=== PATIENT | male | born 1965 | race African-American/Black ===

== ENCOUNTER 2016-07-19 16:16 | Inpatient (IN) | payer OTHER, MEDICAID ==
[~2016-07-19] VITALS: Ht 182.9 cm; Wt 79.4 kg
[2016-07-19 16:39] VITALS: BP 114/79
[2016-07-19] MEDS ORDERED: BENZTROPINE MESY1 MG PO (16:40)
[2016-07-19] MEDS ORDERED: VITAMIN D1000 UNI1 ORAL (16:40)
[2016-07-19] MEDS ORDERED: SIMVASTATIN20 MG ORAL (16:40)
[2016-07-19] MEDS ORDERED: FERROUS SULFAT325 MG ORAL (16:40)
[2016-07-19] MEDS ORDERED: ZOLPIDEM TARTRAT5 MG ORAL (16:40)
[2016-07-19] MEDS ORDERED: TOPROL XL50 MG ORAL (16:40)
[2016-07-19] MEDS ORDERED: ZYPREXA10 MG ORAL (16:40)
[2016-07-19] MEDS ORDERED: QUETIAPINE FUMA50 MG ORAL (16:40)
[2016-07-19] MEDS ORDERED: LORATADINE10 M1 PO (16:40)
[2016-07-19] MEDS ORDERED: METFORMIN HCL1000 M1 ORAL (16:40)
[2016-07-19] MEDS ORDERED: DOCUSATE SODIU100 MG ORAL (16:40)
[2016-07-19] MEDS ORDERED: ACTOS30 MG ORAL (16:40)
[2016-07-19 18:00] LABS: MEAN CORPUSCULAR HEMOGLOBIN 22.8 PG (27.0-31.0); MEAN CORPUSCULAR HGB CONC 31.4 G/DL (32.0-36.0); MEAN CORPUSCULAR VOLUME 73 FL (80-99); MEAN PLATELET VOLUME 9.8 FL (6.5-10.1); PLATELET COUNT 128 K/UL (150-450); RED BLOOD COUNT 5.59 M/UL (4.70-6.10); RED CELL DISTRIBUTION WIDTH 14.3 % (11.6-14.8)
[2016-07-19 18:02] LABS: WHITE BLOOD COUNT 0.9 K/UL (4.8-10.8)
[2016-07-19 18:09] LABS: APPEARANCE,URINE SLIGHTLY CLOUDY; KETONES,URINE NEGATIVE (NEGATIVE); LEUKOCYTE ESTERASE ,URINE 1+ (NEGATIVE); NITRITE,URINE POSITIVE (NEGATIVE); PH,URINE 6 (4.5-8.0); PROTEIN,URINE NEGATIVE (NEGATIVE); UROBILINOGEN,URINE NORMAL MG/DL (0.0-1.0)
[2016-07-19 18:16] LABS: TROPONIN I < 0.30 ng/mL (<=0.30)
[2016-07-19 18:17] LABS: BACTERIA,URINE MANY /HPF; RBC,URINE 0-2 /HPF (0 - 0); SQUAMOUS EPITHELIAL CELL,UR OCCASIONAL /LPF (NONE/OCC)
[2016-07-19 18:20] LABS: ALANINE AMINOTRANSFERASE 103 U/L (3-41); ALBUMIN/GLOBULIN RATIO 1.4 (1.0-2.7); ANION GAP 13 (5-15); ASPARTATE AMINO TRANSFERASE 67 U/L (5-40); CALCIUM 10.9 mg/dL (8.6-10.2); CARBON DIOXIDE 31 mEQ/L (20-30); CHLORIDE 96 mEQ/L (98-107); CREATININE 0.5 mg/dL (0.7-1.2); GLOMERULAR FILTRATION RATE > 60 mL/min (>60); HEMOLYSIS 50; POTASSIUM 3.8 mEQ/L (3.4-4.9); SODIUM 140 mEQ/L (135-145); TOTAL PROTEIN 7.1 g/dL (6.6-8.7)
[2016-07-19 18:24] LABS: ANISOCYTOSIS 1+; BAND NEUTROPHILS % (MANUAL) 8 % (0-8); BASOPHILS % (MANUAL) 0 % (0-2); EOSINOPHILS % (MANUAL) 1 % (0-3); LYMPHOCYTES % (MANUAL) 28 % (20-45); MICROCYTES 1+; NEUTROPHILS % (MANUAL) 54 % (45-75); PLATELET MORPHOLOGY NORMAL; TOTAL CELLS COUNTED 100
[2016-07-19 18:25] LABS: BURR CELLS 1+; HYPOCHROMASIA 1+
[2016-07-19 18:26] LABS: SCHISTOCYTES OCCASIONAL
[2016-07-19 18:28] LABS: PLATELET ESTIMATE DECREASED; REFLEX LACTIC ACID YES OR NO YES
[2016-07-19 18:30] LABS: CKMB 3.7 ng/mL (< 6.7)
[2016-07-19] MEDS ORDERED: Azithromycin 500 MG in NS 250 ML IV ONE (18:30)
[2016-07-19 18:45] VITALS: BP 107/65
--- NOTE | 2016-07-19 19:37 | Emergency Room Report ---
History of Present Illness General Chief Complaint: Generalized Weakness Source: Patient, Caregiver Present Illness HPI 50-year-old male presents to ED for evaluation. 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 Patient noted to have low blood sugar at the facility today and was given some juice and food. Patient had a near syncopal episode and almost fell but was caught by staff members. Upon arrival patient showing no signs of distress. Patient is MR and is nonverbal at baseline. Unable to provide any additional history at this time. No reported fevers or chills. No reported chest pain shortness of breath. No reported nausea or vomiting. No other associated symptoms Allergies: Coded Allergies: No Known Allergies (Unverified , 07/19/16) Patient History Past Medical History: DM, HTN, other - MR Pertinent Family History: none Social History: Denies: alcohol use, drug use, smoking Immunizations: UTD Reviewed Nursing Documentation: PMH: Agreed, PSxH: Agreed Nursing Documentation-PMH Past Medical History: No History, Except For Hx Hypertension: Yes Hx Diabetes: Yes History Of Psychiatric Problem: Yes Review of Systems All Other Systems: limited Physical Exam Vital Signs Date Time Temp Pulse Resp B/P Pulse Ox O2 Delivery O2 Flow Rate FiO2 07/19/16 16:30 105/71 07/19/16 16:39 77 17 100 Room Air 07/19/16 18:45 87.5 Sp02 EP Interpretation: reviewed, normal General Appearance: alert, cachetic, thin, other - temporal wasting Head: normocephalic Eyes: bilateral eye PERRL, bilateral eye normal inspection ENT: normal ENT inspection Neck: normal inspection Respiratory: chest non-tender, lungs clear, normal breath sounds, speaking full sentences Cardiovascular #1: regular rate, rhythm, no edema Gastrointestinal: normal bowel sounds, non tender, soft, non-distended, no guarding, no rebound Rectal: deferred Genitourinary: no CVA tenderness Musculoskeletal: normal inspection Neurologic: alert, motor strength/tone normal, sensory intact, other - nonverbal Psychiatric: other - nonverbal Skin: normal inspection Lymphatic: normal inspection Medical Decision Making Diagnostic Impression: Primary Impression: UTI (urinary tract infection) Qualified Codes: N39.0 - Urinary tract infection, site not specified Additional Impressions: Sepsis Qualified Codes: A41.9 - Sepsis, unspecified organism Pancytopenia Leukopenia Qualified Codes: D72.819 - Decreased white blood cell count, unspecified Episode of generalized weakness Hypothermia Qualified Codes: T68.XXXA - Hypothermia, initial encounter ER Course Hospital Course 50-year-old male presenting to ED with generalized weakness Differential diagnoses include: Pneumonia, UTI, sepsis, dehydration, [place]/ unstable angina Clinical course Patient placed on stretcher. On court recording monitor with stable vitals are ED course. After initial history and physical, I ordered labs, IV fluids, EKG, chest x-ray, blood cultures, UA. Labs -electrolytes ok, marked leukopenia, some pancytopenia noted. troponins negative, UA grossly positive for UTI. lactate 3.7 Temperature 88 - jayson hugger started CXR - ? infiltrate/atlectasis in LLL EKG - no nicole waves Abx given. IVFs started. Patient has temporal wasting and needs to be explored further for some immunosuppression process (cancer versus HIV) Case discussed with Dr Cunha and they agreed to admit patient to their service for further care and support I feel this is a highly complex case requiring extensive working including EKG/ Rhythm strip, Xray/CT/US, Blood/urine lab work, repeat exams while in ED, and administration of strong opiates/narcotics for pain control, admission to hospital or close patient follow up. Diagnosis - UTI, generalized weakness, sepsis, pancyctopenia, leukopenia, hypothermia Patient admitted to floor in serious condition Labs Test 07/19/16 17:30 07/19/16 18:00 White Blood Count 0.9 K/UL (4.8-10.8) Red Blood Count 5.59 M/UL (4.70-6.10) Hemoglobin 12.8 G/DL (14.2-18.0) Hematocrit 40.7 % (42.0-52.0) Mean Corpuscular Volume 73 FL (80-99) Mean Corpuscular Hemoglobin 22.8 PG (27.0-31.0) Mean Corpuscular Hemoglobin Concent 31.4 G/DL (32.0-36.0) Red Cell Distribution Width 14.3 % (11.6-14.8) Platelet Count 128 K/UL (150-450) Mean Platelet Volume 9.8 FL (6.5-10.1) Neutrophils (%) (Auto) % (45.0-75.0) Lymphocytes (%) (Auto) % (20.0-45.0) Monocytes (%) (Auto) % (1.0-10.0) Eosinophils (%) (Auto) % (0.0-3.0) Basophils (%) (Auto) % (0.0-2.0) Differential Total Cells Counted 100 Neutrophils % (Manual) 54 % (45-75) Lymphocytes % (Manual) 28 % (20-45) Monocytes % (Manual) 9 % (1-10) Eosinophils % (Manual) 1 % (0-3) Basophils % (Manual) 0 % (0-2) Band Neutrophils 8 % (0-8) Platelet Estimate Decreased Platelet Morphology Normal Hypochromasia 1+ Anisocytosis 1+ Microcytosis 1+ Flomot Cells 1+ Schistocytes Occasional Sodium Level 140 mEQ/L (135-145) Potassium Level 3.8 mEQ/L (3.4-4.9) Chloride Level 96 mEQ/L (98-107) Carbon Dioxide Level 31 mEQ/L (20-30) Anion Gap 13 (5-15) Blood Urea Nitrogen 14 mg/dL (7-23) Creatinine 0.5 mg/dL (0.7-1.2) Estimat Glomerular Filtration Rate > 60 mL/min (>60) Glucose Level 226 mg/dL (74-106) Lactic Acid Level 3.70 mmol/L (0.66-2.22) Calcium Level 10.9 mg/dL (8.6-10.2) Total Bilirubin < 0.2 mg/dL (0.0-1.2) Aspartate Amino Transf (AST/SGOT) 67 U/L (5-40) Alanine Aminotransferase (ALT/SGPT) 103 U/L (3-41) Alkaline Phosphatase 79 U/L (40-129) Total Creatine Kinase 89 U/L (38-174) Creatine Kinase MB 3.7 ng/mL (< 6.7) Creatine Kinase MB Relative Index 4.1 Troponin I < 0.30 ng/mL (<=0.30) Total Protein 7.1 g/dL (6.6-8.7) Albumin 4.2 g/dL (3.5-5.2) Globulin 2.9 g/dL Albumin/Globulin Ratio 1.4 (1.0-2.7) Urine Color Pale yellow Urine Appearance Slightly cloudy Urine pH 6 (4.5-8.0) Urine Specific [place] 1.020 (1.005-1.035) Urine Protein Negative (NEGATIVE) Urine Glucose (UA) 4+ (NEGATIVE) Urine Ketones Negative (NEGATIVE) Urine Occult Blood Negative (NEGATIVE) Urine Nitrite Positive (NEGATIVE) Urine Bilirubin Negative (NEGATIVE) Urine Urobilinogen Normal MG/DL (0.0-1.0) Urine Leukocyte Esterase 1+ (NEGATIVE) Urine RBC 0-2 /HPF (0 - 0) Urine WBC 2-4 /HPF (0 - 0) Urine Squamous Epithelial Cells Occasional /LPF Urine Bacteria Many /HPF (NONE) EKG Diagnostic Results Rate: normal Rhythm: NSR ST Segments: no acute changes ASA given to the pt in ED: No Rhythm Strip Diag. Results EP Interpretation: yes Rhythm: NSR, no PVC's, no ectopy Chest X-Ray Diagnostic Results EP Interpretation: Yes Findings: no pneumothorax, no acute cardiopulmonary disease, other - atelectasis L side vs infiltrate Number of Views: 1 Last Vital Signs Date Time Temp Pulse Resp B/P Pulse Ox O2 Delivery O2 Flow Rate FiO2 07/19/16 18:45 87.5 67 12 107/65 100 Room Air Status: improved Disposition: ADMITTED INPATIENT Condition: Serious Referrals: NON PHYSICIAN (PCP) POPPY QUINTANA M.D. Jul 19, 2016 19:37
[2016-07-19] MEDS ORDERED: Azithromycin Inj IV ONE (19:44)
[2016-07-19 20:01] VITALS: BP 96/64
[2016-07-19 20:30] VITALS: BP 98/66
[2016-07-19] MEDS ORDERED: Miralax 17gm pkt ORAL PRN (22:15)
[2016-07-19] MEDS ORDERED: Nitroglycerin Subl 0.4mg tab (Bottle Of 25) SL PRN (22:15)
[2016-07-19] MEDS ORDERED: DuoNeb 0.5-3(2.5)mg/3ml neb HHN PRN (22:15)
[2016-07-19] MEDS ORDERED: Mylanta II UD 30ml ORAL PRN (22:15)
[2016-07-20] VITALS: BP 120/78
[2016-07-20 04:00] VITALS: BP 115/78
[2016-07-20] MEDS: NovoLOG Insulin Flexpen SUBQ SCH ×3 (06:15→16:30)
[2016-07-20 08:40] VITALS: BP 105/71
--- NOTE | 2016-07-20 08:40 | Diagnostic Imaging Report ---
Indication: Cough Technique: XRAY CHEST 1 V Comparison: None Findings: Cardiomedial still silhouette is within normal limits. There is hazy appearance in the left base. There is no pneumothorax or pleural effusion. Degenerative changes of the spine are noted. Impression: Hazy appearance in the left base suggestive of atelectasis or infiltrate. Clinical correlation/followup recommended.
[2016-07-20] MEDS: Heparin 5000 units/ml inj SUBQ SCH ×2 (09:00→20:24)
[2016-07-20] MEDS: QUEtiapine 200mg tab ORAL SCH ×2 (09:16→18:35)
[2016-07-20 11:21] VITALS: BP 113/80
--- NOTE | 2016-07-20 14:16 | History and Physical ---
History of Present Illness General Date patient seen: Jul 20, 2016 Time patient seen: 12:30 Reason for Hospitalization: Generalized Weakness Present Illness HPI 50 y/old male was brought for increased weakness for the last few weeks, low blood sugar at the facility, almost fell, given juice and food patient with hx of MR, nonverbal and unable to provide any information upon arrival hypothermic-89.9 ( rectal), no reported CP, SOB, , no signs of respiratory distress no reported fevers, chills no reported n/v/abdominal pain workup revealed WBC -0.9, lactic acid -3.7, BP 96/64, UA with evidence of infection ( + nitrites, many bacteria, no pyuria), no hypoglycemia in ED CXR with Hazy appearance in the left base suggestive of atelectasis or infiltrate. septic workup initiated in ED started on empiric abx, warming measures provided and patient transferred to [facility] floor for further management Allergies: Coded Allergies: No Known Allergies (Unverified , 07/19/16) Medication History Scheduled Cholecalciferol (Vitamin D3)* (Vitamin D*), 1,000 UNIT ORAL DAILY, (Reported) Docusate Sodium* (Docusate Sodium*), 100 MG ORAL TWICE A DAY, (Reported) Ferrous Sulfate* (Ferrous Sulfate*), 325 MG ORAL DAILY, (Reported) Metformin Hcl* (Metformin Hcl*), 1,000 MG ORAL BID, (Reported) Metoprolol Succinate* (Toprol Xl*), 50 MG ORAL DAILY, (Reported) Olanzapine* (Zyprexa*), 10 MG ORAL DAILY, (Reported) Pioglitazone Hcl* (Actos*), 30 MG ORAL DAILY, (Reported) Quetiapine Fumarate* (Quetiapine Fumarate*), 200 MG ORAL BID, (Reported) Simvastatin (Zocor), 20 MG ORAL BEDTIME, (Reported) Scheduled PRN Zolpidem Tartrate* (Zolpidem Tartrate*), 5 MG ORAL BEDTIME PRN for Insomnia, ( Reported) Miscellaneous Medications Benztropine Mesylate* (Benztropine Mesylate*), 1 MG PO, (Reported) Loratadine (Loratadine), 10 MG PO, (Reported) Patient History History Provided By: Medical Record Healthcare decision maker Resuscitation status Advanced Directive on File Past Medical/Surgical History Past Medical/Surgical History: (1) HTN (hypertension) (2) Mental retardation (3) Diabetes Review of Systems ROS Narrative unavailable due to ALOC Physical Exam General Appearance: no apparent distress, alert, other - open eyes spontaneously, nonverbal Lines, tubes and drains: peripheral HEENT: normocephalic, atraumatic, anicteric, PERRL, other - temporal wasting Neck: non-tender, normal alignment, supple Respiratory/Chest: lungs clear, no respiratory distress, no accessory muscle use Cardiovascular/Chest: normal rate, regular rhythm, no JVD Abdomen: normal bowel sounds, non tender, soft Extremities: non-tender, normal inspection, non-pitting Skin Exam: warm/dry Neurologic: abnormal gait, other - nonverbal, sensory intact, moves all extremities Musculoskeletal: normal muscle bulk Last 24 Hour Vital Signs Date Time Temp Pulse Resp B/P Pulse Ox O2 Delivery O2 Flow Rate FiO2 07/20/16 11:21 75 20 113/80 100 Room Air 07/20/16 09:00 99 105/71 07/20/16 08:40 99 21 105/71 95 Room Air 07/20/16 05:23 54 14 Room Air 07/20/16 04:00 98.4 106 20 115/78 100 Room Air 07/20/16 00:00 97.2 87 16 120/78 100 Room Air 07/19/16 21:20 96.5 07/19/16 20:30 89.6 79 18 98/66 98 Room Air 07/19/16 20:01 89.9 72 17 96/64 96 Room Air 07/19/16 20:01 89.9 72 17 96/64 96 Room Air 07/19/16 18:45 87.5 67 12 107/65 100 Room Air 07/19/16 16:39 77 17 114/79 100 Room Air 07/19/16 16:30 105/71 Intake and Output 07/19/16 07/20/16 19:00 07:00 Intake Total 1000 ml 50 ml Balance 1000 ml 50 ml IV Total 1000 ml 50 ml # Voids 1 Laboratory Tests Test 07/19/16 17:30 07/19/16 18:00 07/19/16 19:30 White Blood Count 0.9 K/UL (4.8-10.8) *L Red Blood Count 5.59 M/UL (4.70-6.10) Hemoglobin 12.8 G/DL (14.2-18.0) L Hematocrit 40.7 % (42.0-52.0) L Mean Corpuscular Volume 73 FL (80-99) L Mean Corpuscular Hemoglobin 22.8 PG (27.0-31.0) L Mean Corpuscular Hemoglobin Concent 31.4 G/DL (32.0-36.0) L Red Cell Distribution Width 14.3 % (11.6-14.8) Platelet Count 128 K/UL (150-450) L Mean Platelet Volume 9.8 FL (6.5-10.1) Neutrophils (%) (Auto) % (45.0-75.0) Lymphocytes (%) (Auto) % (20.0-45.0) Monocytes (%) (Auto) % (1.0-10.0) Eosinophils (%) (Auto) % (0.0-3.0) Basophils (%) (Auto) % (0.0-2.0) Differential Total Cells Counted 100 Neutrophils % (Manual) 54 % (45-75) Lymphocytes % (Manual) 28 % (20-45) Monocytes % (Manual) 9 % (1-10) Eosinophils % (Manual) 1 % (0-3) Basophils % (Manual) 0 % (0-2) Band Neutrophils 8 % (0-8) Platelet Estimate Decreased L Platelet Morphology Normal Hypochromasia 1+ Anisocytosis 1+ Microcytosis 1+ Lana Cells 1+ Schistocytes Occasional Sodium Level 140 mEQ/L (135-145) Potassium Level 3.8 mEQ/L (3.4-4.9) Chloride Level 96 mEQ/L (98-107) L Carbon Dioxide Level 31 mEQ/L (20-30) H Anion Gap 13 (5-15) Blood Urea Nitrogen 14 mg/dL (7-23) Creatinine 0.5 mg/dL (0.7-1.2) L Estimat Glomerular Filtration Rate > 60 mL/min (>60) Glucose Level 226 mg/dL (74-106) H Lactic Acid Level 3.70 mmol/L (0.66-2.22) H 4.10 mmol/L (0.66-2.22) H Calcium Level 10.9 mg/dL (8.6-10.2) H Total Bilirubin < 0.2 mg/dL (0.0-1.2) Aspartate Amino Transf (AST/SGOT) 67 U/L (5-40) H Alanine Aminotransferase (ALT/SGPT) 103 U/L (3-41) H Alkaline Phosphatase 79 U/L (40-129) Total Creatine Kinase 89 U/L (38-174) Creatine Kinase MB 3.7 ng/mL (< 6.7) Creatine Kinase MB Relative Index 4.1 Troponin I < 0.30 ng/mL (<=0.30) Total Protein 7.1 g/dL (6.6-8.7) Albumin 4.2 g/dL (3.5-5.2) Globulin 2.9 g/dL Albumin/Globulin Ratio 1.4 (1.0-2.7) Urine Color Pale yellow Urine Appearance Slightly cloudy Urine pH 6 (4.5-8.0) Urine Specific [place] 1.020 (1.005-1.035) Urine Protein Negative (NEGATIVE) Urine Glucose (UA) 4+ (NEGATIVE) H Urine Ketones Negative (NEGATIVE) Urine Occult Blood Negative (NEGATIVE) Urine Nitrite Positive (NEGATIVE) H Urine Bilirubin Negative (NEGATIVE) Urine Urobilinogen Normal MG/DL (0.0-1.0) Urine Leukocyte Esterase 1+ (NEGATIVE) H Urine RBC 0-2 /HPF (0 - 0) H Urine WBC 2-4 /HPF (0 - 0) Urine Squamous Epithelial Cells Occasional /LPF Urine Bacteria Many /HPF (NONE) H Microbiology Date/Time Source Procedure Growth Status 07/19/16 18:00 Urine,Clean Catch Urine Culture - Preliminary Gram Negative Bacillus 1 Resulted Height (Feet): 6 Height (Inches): 0.00 Weight (Pounds): 175 Medications Current Medications Medications (Trade) Dose Ordered Sig/Ayo Route PRN Reason Start Time Stop Time Status Last Admin Dose Admin Acetaminophen (Tylenol) 650 mg Q4H PRN ORAL fever 07/19/16 22:15 08/18/16 22:14 Al Hydroxide/Mg Hydroxide (Mylanta II) 30 ml Q6H PRN ORAL dyspepsia 07/19/16 22:15 08/18/16 22:14 Albuterol/ Ipratropium 3 ml 3 ml Q4H PRN HHN Shortness of Breath 07/19/16 22:15 07/24/16 22:14 Cefepime HCl/ Dextrose (Maxipime/D5W 50ml) 50 ml @ 100 mls/hr EVERY 12 HOURS IV 07/20/16 09:00 07/27/16 08:59 07/20/16 09:16 Dextrose (D5W 1000ml) 1,000 ml @ 50 mls/hr Q20H IV 07/20/16 14:00 08/19/16 13:59 07/20/16 14:05 Dextrose STAT PRN IV Hypoglycemia 07/19/16 22:15 08/18/16 22:14 07/20/16 12:19 Heparin Sodium (Porcine) (Heparin 5000 units/ml) 5,000 units EVERY 12 HOURS SUBQ 07/20/16 09:00 08/19/16 08:59 Insulin Aspart (NovoLOG) BEFORE MEALS AND HS SUBQ 07/20/16 06:30 08/19/16 06:29 Metoprolol Succinate (Toprol XL) 50 mg DAILY ORAL 07/20/16 09:00 08/19/16 08:59 Nitroglycerin (Ntg) 0.4 mg Q5M PRN SL Prn Chest Pain 07/19/16 22:15 08/18/16 22:14 Olanzapine (ZyPREXA) 5 mg DAILY ORAL 07/20/16 09:00 08/19/16 08:59 07/20/16 09:16 Ondansetron HCl (Zofran) 4 mg Q6H PRN IVP Nausea & Vomiting 07/19/16 22:15 08/18/16 22:14 Polyethylene Glycol (Miralax) 17 gm DAILYPRN PRN ORAL Constipation 07/19/16 22:15 08/18/16 22:14 Quetiapine Fumarate (SEROquel) 200 mg BID ORAL 07/20/16 09:00 08/19/16 08:59 07/20/16 09:16 Temazepam (Restoril) 15 mg HSPRN PRN ORAL Insomnia 07/19/16 22:15 07/26/16 22:14 Assessment/Plan Assessment/Plan ASSESSMENT sepsis UTI PNA - aspiration vs HAP hypoglycemia near syncope 2 to hypoglycemia PNA leukopenia elevated LFT HTN mental retardation hx of DM mild hypercalcemia PLAN OF CARE [facility] floor IVF with D5W accuchecks, dc SS for now abx, fup with cx, ID consult O2, HHN prn Fup with CXR BP management with BB and optimize as needed swallow eval in am resume psych meds watch WBC, consider heme eval monitor LFT, check abdominal US, hepatitis finisher special stocks Ca level, if continue to be elevated will need w/up for hypercalcemia DVT prophylaxis case discussed and evaluated by supervising physician Bari (Jaimie),Isadora CANO Jul 20, 2016 14:16
[2016-07-20 14:51] LABS: MEAN CORPUSCULAR HEMOGLOBIN 22.7 PG (27.0-31.0); MEAN CORPUSCULAR HGB CONC 31.5 G/DL (32.0-36.0); MEAN CORPUSCULAR VOLUME 72 FL (80-99); MEAN PLATELET VOLUME 8.8 FL (6.5-10.1); PLATELET COUNT 126 K/UL (150-450); RED BLOOD COUNT 4.87 M/UL (4.70-6.10)
[2016-07-20 15:03] LABS: ANION GAP 8 (5-15); CALCIUM 9.7 mg/dL (8.6-10.2); CARBON DIOXIDE 32 mEQ/L (20-30); CHLORIDE 98 mEQ/L (98-107); CREATININE 0.4 mg/dL (0.7-1.2); GLOMERULAR FILTRATION RATE > 60 mL/min (>60); HEMOLYSIS 2; PHOSPHORUS 2.4 mg/dL (2.5-4.8); SODIUM 138 mEQ/L (135-145)
[2016-07-20 16:00] VITALS: BP 130/86
--- NOTE | 2016-07-20 16:57 | Consultation ---
Consult Note Consult Note ID Dic# [id number] DENZEL WEAVER M.D. Jul 20, 2016 16:56
[2016-07-20 20:00] VITALS: BP 102/63
[2016-07-20 20:50] LABS: ANISOCYTOSIS 1+; BAND NEUTROPHILS % (MANUAL) 28 % (0-8); BASOPHILS % (MANUAL) 2 % (0-2); EOSINOPHILS % (MANUAL) 1 % (0-3); HYPOCHROMASIA 1+; LYMPHOCYTES % (MANUAL) 16 % (20-45); NEUTROPHILS % (MANUAL) 39 % (45-75); TOTAL CELLS COUNTED 100
[2016-07-20 20:51] LABS: BURR CELLS 1+; PLATELET ESTIMATE DECREASED; PLATELET MORPHOLOGY NORMAL
--- NOTE | 2016-07-20 22:27 | Consultation ---
DATE OF CONSULTATION: INFECTIOUS DISEASE CONSULTATION CONSULTING PHYSICIAN: You Crawford M.D REFERRING PHYSICIAN: Isadora Candelaria ([facility]), N.PMayra REASON FOR CONSULTATION: Evaluation of the patient for sepsis, urinary tract infection, and antibiotic management. HISTORY OF PRESENT ILLNESS: The patient is a 50-year-old male with past medical history significant for hypertension and diabetes, nonverbal probably due to mental retardation. The patient was brought to the hospital because of being weak. The patient at time of admission, was found to be leukopenic and hypothermic. The patient has been started on IV cefepime and Infectious Disease consultation has been requested for further evaluation of the patient and antibiotic management. PAST MEDICAL HISTORY: As mentioned above. MEDICATIONS: IV Cefepime. ALLERGIES: No known drug allergies. SOCIAL HISTORY: The patient has a caregiver. No history of alcohol, drug abuse, or smoking. FAMILY HISTORY: Not available. REVIEW OF SYSTEMS: Unobtainable. LABORATORY AND DIAGNOSTIC DATA: UA unremarkable. White blood cells 2, hemoglobin 11, and platelet 126,000. BUN 9. Creatinine 0.4. Urine culture is growing gram-negative rods. Chest x-ray suggestive of left base atelectasis. ASSESSMENT: The patient is a 50-year-old male, who came to the hospital. The patient was found to be neutropenic, this is possibly due to the patient's psychiatric medications, Seroquel; however, underlying sepsis may contribute to that. The patient's urine culture is growing gram-negative rods, possible bacteremia. PLAN: 1. We will continue the patient on IV cefepime. 2. Monitor CBC. 3. Monitor BMP. 4. Monitor cultures (blood and urine.) 5. Recommend hematology/oncology evaluation. 6. Based on the patient's clinical symptoms and laboratories, we will do further recommendations. Thank you, Dr. Cunha and nurse practitioner, Isadora Candelaria for allowing me to participate in the care of this patient. I will follow the patient with you during this hospitalization. You Crawford M.D. DR: Javier JOB#: [id number] CC:
[2016-07-21] VITALS: BP 110/70
[2016-07-21 04:31] VITALS: BP 115/78
[2016-07-21 07:20] VITALS: BP 112/81
[2016-07-21 08:17] LABS: MEAN CORPUSCULAR VOLUME 72 FL (80-99); MEAN PLATELET VOLUME 10.3 FL (6.5-10.1); PLATELET COUNT 139 K/UL (150-450); RED BLOOD COUNT 5.58 M/UL (4.70-6.10); RED CELL DISTRIBUTION WIDTH 14.1 % (11.6-14.8)
[2016-07-21] MEDS: QUEtiapine 200mg tab ORAL SCH ×2 (08:21→18:12)
[2016-07-21] MEDS: Heparin 5000 units/ml inj SUBQ SCH ×2 (08:26→20:11)
[2016-07-21 08:27] LABS: ANION GAP 10 (5-15); CARBON DIOXIDE 31 mEQ/L (20-30); CHLORIDE 97 mEQ/L (98-107); CREATININE 0.5 mg/dL (0.7-1.2); GLOMERULAR FILTRATION RATE > 60 mL/min (>60); HEMOLYSIS 1; POTASSIUM 3.8 mEQ/L (3.4-4.9); SODIUM 138 mEQ/L (135-145)
[2016-07-21 09:08] LABS: ANISOCYTOSIS 1+; BAND NEUTROPHILS % (MANUAL) 8 % (0-8); BASOPHILS % (MANUAL) 0 % (0-2); EOSINOPHILS % (MANUAL) 1 % (0-3); LYMPHOCYTES % (MANUAL) 22 % (20-45); MICROCYTES 1+; NEUTROPHILS % (MANUAL) 56 % (45-75); PLATELET ESTIMATE DECREASED; PLATELET MORPHOLOGY NORMAL; TOTAL CELLS COUNTED 100
--- NOTE | 2016-07-21 09:59 | Cardiology Report ---
APPROVED REPORT EKG Measurement Heart [id number] Normal sinus rhythm Nonspecific ST abnormality Abnormal ECG
[2016-07-21 10:16] LABS: OTHERS PATHOLOGIST COMMENT
--- NOTE | 2016-07-21 11:33 | Infectious Diseases Prog Note ---
Assessment/Plan Assessment/Plan A: The patient is a 50-year-old male with Sepsis, SP SP hypothermia UTI EColi Leukopenia 2nd to Psych meds ? Psych disorder HTN DM PLAN: on IV cefepime. d # 2 ,. change to Ancef d# / , upon DC will change to po Keflex to complete the course Monitor CBC. Monitor BMP. Monitor cultures (blood ) Recommend hematology/oncology evaluation Subjective Constitutional: Denies: anorexia, chills, drenching sweats, fatigue, fever, no symptoms, other Allergies: Coded Allergies: No Known Allergies (Unverified , 07/19/16) Objective Vital Signs Last 24 Hour Vital Signs Date Time Temp Pulse Resp B/P Pulse Ox O2 Delivery O2 Flow Rate FiO2 07/21/16 08:26 69 112/81 07/21/16 07:30 64 14 Room Air 07/21/16 07:20 98.2 69 15 112/81 100 Room Air 07/21/16 05:31 97.7 07/21/16 04:31 70 20 115/78 96 Room Air 07/21/16 00:00 97.0 88 18 110/70 Room Air 07/20/16 20:00 96.1 86 16 102/63 99 Room Air 07/20/16 16:00 96.9 71 18 130/86 100 Height (Feet): 6 Height (Inches): 0.00 Weight (Pounds): 175 HEENT: atraumatic Respiratory/Chest: normal breath sounds Abdomen: soft, non tender, no mass Microbiology Date/Time Source Procedure Growth Status 07/19/16 17:30 Blood Blood Culture - Preliminary NO GROWTH AFTER 24 HOURS Resulted 07/19/16 17:15 Blood Blood Culture - Preliminary NO GROWTH AFTER 24 HOURS Resulted 07/19/16 18:00 Urine,Clean Catch Urine Culture - Final Escherichia Coli Complete Laboratory Tests Test 07/20/16 14:10 07/21/16 07:50 White Blood Count 2.0 K/UL (4.8-10.8) #*L 2.0 K/UL (4.8-10.8) *L Red Blood Count 4.87 M/UL (4.70-6.10) 5.58 M/UL (4.70-6.10) Hemoglobin 11.1 G/DL (14.2-18.0) L 12.9 G/DL (14.2-18.0) L Hematocrit 35.2 % (42.0-52.0) L 40.2 % (42.0-52.0) L Mean Corpuscular Volume 72 FL (80-99) L 72 FL (80-99) L Mean Corpuscular Hemoglobin 22.7 PG (27.0-31.0) L 23.0 PG (27.0-31.0) L Mean Corpuscular Hemoglobin Concent 31.5 G/DL (32.0-36.0) L 32.0 G/DL (32.0-36.0) Red Cell Distribution Width 14.0 % (11.6-14.8) 14.1 % (11.6-14.8) Platelet Count 126 K/UL (150-450) L 139 K/UL (150-450) L Mean Platelet Volume 8.8 FL (6.5-10.1) 10.3 FL (6.5-10.1) H Neutrophils (%) (Auto) % (45.0-75.0) % (45.0-75.0) Lymphocytes (%) (Auto) % (20.0-45.0) % (20.0-45.0) Monocytes (%) (Auto) % (1.0-10.0) % (1.0-10.0) Eosinophils (%) (Auto) % (0.0-3.0) % (0.0-3.0) Basophils (%) (Auto) % (0.0-2.0) % (0.0-2.0) Differential Total Cells Counted 100 100 Neutrophils % (Manual) 39 % (45-75) L 56 % (45-75) Lymphocytes % (Manual) 16 % (20-45) L 22 % (20-45) Monocytes % (Manual) 14 % (1-10) H 13 % (1-10) H Eosinophils % (Manual) 1 % (0-3) 1 % (0-3) Basophils % (Manual) 2 % (0-2) 0 % (0-2) Band Neutrophils 28 % (0-8) H 8 % (0-8) Platelet Estimate Decreased L Decreased L Platelet Morphology Normal Normal Hypochromasia 1+ Anisocytosis 1+ 1+ Lana Cells 1+ Sodium Level 138 mEQ/L (135-145) 138 mEQ/L (135-145) Potassium Level 4.0 mEQ/L (3.4-4.9) 3.8 mEQ/L (3.4-4.9) Chloride Level 98 mEQ/L (98-107) 97 mEQ/L (98-107) L Carbon Dioxide Level 32 mEQ/L (20-30) H 31 mEQ/L (20-30) H Anion Gap 8 (5-15) 10 (5-15) Blood Urea Nitrogen 9 mg/dL (7-23) 10 mg/dL (7-23) Creatinine 0.4 mg/dL (0.7-1.2) L 0.5 mg/dL (0.7-1.2) L Estimat Glomerular Filtration Rate > 60 mL/min (>60) > 60 mL/min (>60) Glucose Level 87 mg/dL (74-106) # 73 mg/dL (74-106) L Calcium Level 9.7 mg/dL (8.6-10.2) 10.0 mg/dL (8.6-10.2) Phosphorus Level 2.4 mg/dL (2.5-4.8) L Albumin 3.3 g/dL (3.5-5.2) L Microcytosis 1+ Hepatitis A IgM Antibody Pending Hepatitis B Surface Antigen Pending Hepatitis B Core IgM Antibody Pending Hepatitis C Antibody Pending Current Medications Medications (Trade) Dose Ordered Sig/Ayo Route PRN Reason Start Time Stop Time Status Last Admin Dose Admin Acetaminophen (Tylenol) 650 mg Q4H PRN ORAL fever 07/19/16 22:15 08/18/16 22:14 Al Hydroxide/Mg Hydroxide (Mylanta II) 30 ml Q6H PRN ORAL dyspepsia 07/19/16 22:15 08/18/16 22:14 Albuterol/ Ipratropium 3 ml 3 ml Q4H PRN HHN Shortness of Breath 07/19/16 22:15 07/24/16 22:14 Cefepime HCl/ Dextrose (Maxipime/D5W 50ml) 50 ml @ 100 mls/hr EVERY 12 HOURS IV 07/20/16 09:00 07/27/16 08:59 07/21/16 08:21 Dextrose (D5W 1000ml) 1,000 ml @ 75 mls/hr [id number] IV 07/20/16 17:30 08/19/16 17:29 07/21/16 04:55 Dextrose STAT PRN IV Hypoglycemia 07/19/16 22:15 08/18/16 22:14 07/20/16 16:25 Heparin Sodium (Porcine) (Heparin 5000 units/ml) 5,000 units EVERY 12 HOURS SUBQ 07/20/16 09:00 08/19/16 08:59 Metoprolol Succinate (Toprol XL) 50 mg DAILY ORAL 07/20/16 09:00 08/19/16 08:59 Nitroglycerin (Ntg) 0.4 mg Q5M PRN SL Prn Chest Pain 07/19/16 22:15 08/18/16 22:14 Olanzapine (ZyPREXA) 5 mg DAILY ORAL 07/20/16 09:00 08/19/16 08:59 07/21/16 08:21 Ondansetron HCl (Zofran) 4 mg Q6H PRN IVP Nausea & Vomiting 07/19/16 22:15 08/18/16 22:14 Polyethylene Glycol (Miralax) 17 gm DAILYPRN PRN ORAL Constipation 07/19/16 22:15 08/18/16 22:14 Quetiapine Fumarate (SEROquel) 200 mg BID ORAL 07/20/16 09:00 08/19/16 08:59 07/21/16 08:21 Temazepam (Restoril) 15 mg HSPRN PRN ORAL Insomnia 07/19/16 22:15 07/26/16 22:14 DENZEL WEAVER M.D. Jul 21, 2016 11:33
[2016-07-21 11:46] VITALS: BP 116/73
--- NOTE | 2016-07-21 14:04 | Diagnostic Imaging Report ---
Indication: Abnormal liver function tests Technique: Vasquez-scale and duplex images of the upper abdomen were obtained Comparison: None Findings: . Gallbladder is unremarkable, without stones, wall thickening, nor pericholecystic fluid. Sonographic Winslow's sign is negative. Common bile duct measures 3 mm in diameter. No intrahepatic biliary ductal dilatation. Liver demonstrates normal echogenicity, no focal abnormality. It is enlarged. There is trace ascites. Portal vein and hepatic veins are patent. Pancreas is unremarkable. Spleen is unremarkable. Left kidney measures 11.8 cm in length. Right kidney measures 11.5 cm length. Both kidneys demonstrate slightly increased echogenicity. There is no hydronephrosis. There is a questionable calculus within the left renal sinus. There is a left renal cyst. Non-aneurysmal abdominal aorta. Impression: Hepatomegaly Trace ascites Negative for gallstones or dilated ducts Questionable nonobstructive left renal calyceal calculus Slightly increased renal echogenicity bilaterally, may indicate medical renal disease Incidental finding left renal cyst
[2016-07-21] MEDS ORDERED: Promethazine/Codeine 5ml UD ORAL PRN (14:30)
--- NOTE | 2016-07-21 14:36 | Pulmonology Progress Note ---
Assessment/Plan Problems: (1) Sepsis (2) Hypothermia (3) Leukopenia (4) UTI (urinary tract infection) (5) Acute encephalopathy (6) Mental retardation (7) HTN (hypertension) (8) Diabetes Assessment/Plan check sputum repeat cxr in am f/u cultures check blood sugar Subjective ROS Limited/Unobtainable: No Constitutional: Reports: no symptoms HEENT: Repors: no symptoms Respiratory: Reports: no symptoms Allergies: Coded Allergies: No Known Allergies (Unverified , 07/19/16) Objective Last 24 Hour Vital Signs Date Time Temp Pulse Resp B/P Pulse Ox O2 Delivery O2 Flow Rate FiO2 07/21/16 11:46 98.0 60 15 116/73 100 Nasal Cannula 07/21/16 08:26 69 112/81 07/21/16 07:30 64 14 Room Air 07/21/16 07:20 98.2 69 15 112/81 100 Room Air 07/21/16 05:31 97.7 07/21/16 04:31 70 20 115/78 96 Room Air 07/21/16 00:00 97.0 88 18 110/70 Room Air 07/20/16 20:00 96.1 86 16 102/63 99 Room Air 07/20/16 16:00 96.9 71 18 130/86 100 Intake and Output 07/20/16 07/21/16 19:00 07:00 Intake Total 460 ml 710 ml Output Total 1600 ml Balance 460 ml -890 ml Intake Oral 240 ml 300 ml IV Total 220 ml 410 ml Output Urine Total 1600 ml # Voids 1 General Appearance: WD/WN HEENT: normocephalic Respiratory/Chest: chest wall non-tender, lungs clear Cardiovascular: normal peripheral pulses, normal rate Abdomen: normal bowel sounds, soft, non tender Extremities: no cyanosis, no clubbing Skin: no rash 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 II-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1, Platelet Count 139L, Mean Platelet Volume 10.3H, Neutrophils (%) (Auto) , Lymphocytes (% ) (Auto) , Monocytes (%) (Auto) , Eosinophils (%) (Auto) , Basophils (%) (Auto) , Differential Total Cells Counted 100, Neutrophils % (Manual) 56, Lymphocytes % (Manual) 22, Monocytes % (Manual) 13H, Eosinophils % (Manual) 1, Basophils % ( Manual) 0, Band Neutrophils 8, Platelet Estimate DecreasedL, Platelet Morphology Normal, Anisocytosis 1+, Microcytosis 1+, Sodium Level 138, Potassium Level 3.8, Chloride Level 97L, Carbon Dioxide Level 31H, Anion Gap 10 , Blood Urea Nitrogen 10, Creatinine 0.5L, Estimat Glomerular Filtration Rate > 60, Glucose Level 73L, Calcium Level 10.0, Hepatitis A IgM Antibody [Pending], Hepatitis B Surface Antigen [Pending], Hepatitis B Core IgM Antibody [Pending], Hepatitis C Antibody [Pending] Current Medications Medications (Trade) Dose Ordered Sig/Ayo Route PRN Reason Start Time Stop Time Status Last Admin Dose Admin Acetaminophen (Tylenol) 650 mg Q4H PRN ORAL fever 07/19/16 22:15 08/18/16 22:14 Al Hydroxide/Mg Hydroxide (Mylanta II) 30 ml Q6H PRN ORAL dyspepsia 07/19/16 22:15 08/18/16 22:14 Albuterol/ Ipratropium (DuoNeb 0.5-3(2.5)mg/3ml) 3 ml Q4H PRN HHN Shortness of Breath 07/19/16 22:15 07/24/16 22:14 Cefazolin Sodium/ Dextrose (Ancef/D5W 50ml) 50 ml @ 100 mls/hr Q8HR IVPB 07/21/16 14:00 07/28/16 13:59 07/21/16 14:06 Dextrose 1,000 ml @ 75 mls/hr [id number] IV 07/20/16 17:30 08/19/16 17:29 07/21/16 04:55 Dextrose STAT PRN IV Hypoglycemia 07/19/16 22:15 08/18/16 22:14 07/20/16 16:25 Heparin Sodium (Porcine) (Heparin 5000 units/ml) 5,000 units EVERY 12 HOURS SUBQ 07/20/16 09:00 08/19/16 08:59 Metoprolol Succinate (Toprol XL) 50 mg DAILY ORAL 07/20/16 09:00 08/19/16 08:59 Nitroglycerin (Ntg) 0.4 mg Q5M PRN SL Prn Chest Pain 07/19/16 22:15 08/18/16 22:14 Olanzapine (ZyPREXA) 5 mg DAILY ORAL 07/20/16 09:00 08/19/16 08:59 07/21/16 08:21 Ondansetron HCl (Zofran) 4 mg Q6H PRN IVP Nausea & Vomiting 07/19/16 22:15 08/18/16 22:14 Polyethylene Glycol (Miralax) 17 gm DAILYPRN PRN ORAL Constipation 07/19/16 22:15 08/18/16 22:14 Quetiapine Fumarate (SEROquel) 200 mg BID ORAL 07/20/16 09:00 08/19/16 08:59 07/21/16 08:21 Temazepam (Restoril) 15 mg HSPRN PRN ORAL Insomnia 07/19/16 22:15 07/26/16 22:14 REBECCA SCHNEIDER Jul 21, 2016 14:36
[2016-07-21 16:07] VITALS: BP 107/69
[2016-07-21 20:15] VITALS: BP 110/71
[2016-07-22] VITALS: BP 97/63
[2016-07-22 04:00] VITALS: BP 125/81
[2016-07-22 07:37] VITALS: BP 116/71
[2016-07-22 07:58] LABS: MEAN CORPUSCULAR HEMOGLOBIN 22.9 PG (27.0-31.0); MEAN CORPUSCULAR HGB CONC 32.1 G/DL (32.0-36.0); MEAN CORPUSCULAR VOLUME 72 FL (80-99); MEAN PLATELET VOLUME 8.9 FL (6.5-10.1); PLATELET COUNT 149 K/UL (150-450); RED BLOOD COUNT 5.14 M/UL (4.70-6.10); RED CELL DISTRIBUTION WIDTH 14.3 % (11.6-14.8)
[2016-07-22 08:06] LABS: WHITE BLOOD COUNT 1.8 K/UL (4.8-10.8)
[2016-07-22 08:08] LABS: INR 1.1 (0.9-1.1)
[2016-07-22] MEDS: Heparin 5000 units/ml inj SUBQ SCH ×2 (08:08→20:52)
[2016-07-22] MEDS: QUEtiapine 200mg tab ORAL SCH ×2 (08:11→17:48)
[2016-07-22 08:25] LABS: ALANINE AMINOTRANSFERASE 53 U/L (3-41); ALBUMIN/GLOBULIN RATIO 1.2 (1.0-2.7); ANION GAP 11 (5-15); ASPARTATE AMINO TRANSFERASE 26 U/L (5-40); CALCIUM 9.5 mg/dL (8.6-10.2); CARBON DIOXIDE 31 mEQ/L (20-30); CHLORIDE 97 mEQ/L (98-107); CREATININE 0.6 mg/dL (0.7-1.2); GLOMERULAR FILTRATION RATE > 60 mL/min (>60); HEMOLYSIS 3; MAGNESIUM 1.7 mg/dL (1.7-2.5); PHOSPHORUS 3.4 mg/dL (2.5-4.8); POTASSIUM 3.8 mEQ/L (3.4-4.9); SODIUM 139 mEQ/L (135-145); TOTAL PROTEIN 5.9 g/dL (6.6-8.7)
[2016-07-22 09:11] LABS: BAND NEUTROPHILS % (MANUAL) 3 % (0-8); LYMPHOCYTES % (MANUAL) 17 % (20-45); NEUTROPHILS % (MANUAL) 53 % (45-75); NUCLEATED RED BLOOD CELLS 1 /100 WBC; TOTAL CELLS COUNTED 100
[2016-07-22 09:12] LABS: BASOPHILS % (MANUAL) 0 % (0-2); EOSINOPHILS % (MANUAL) 0 % (0-3); PLATELET ESTIMATE DECREASED; PLATELET MORPHOLOGY NORMAL
[2016-07-22 09:15] LABS: ACANTHOCYTES OCCASIONAL; MICROCYTES 1+
--- NOTE | 2016-07-22 09:25 | Diagnostic Imaging Report ---
Indications: DYSPNEA Technique: Portable AP chest Findings: Comparison: 07/19/16 Focal opacity in left lung base persists, slightly less prominence, more linear in orientation. Right lung, bilateral pleural surfaces remain clear. Heart size, pulmonary vasculature remain within normal limits. IMPRESSION: Slowly resolving atelectasis versus pneumonia left lung base. No new abnormality
--- NOTE | 2016-07-22 10:30 | Infectious Diseases Prog Note ---
Assessment/Plan Assessment/Plan A: The patient is a 50-year-old male with Sepsis, SP SP hypothermia UTI EColi Leukopenia 2nd to Psych meds Hepatitis, mild, improved Hep B/ C : neg ? Psych disorder HTN DM PLAN: on IV Ancef d# 2 / , upon DC will change to po Keflex to complete the course ( 07/21 SP cefepime. d # 2 ) Monitor CBC. Monitor BMP. Monitor cultures (blood ) Recommend hematology/oncology evaluation Subjective Constitutional: Denies: anorexia, chills, drenching sweats, fatigue, fever, no symptoms, other Allergies: Coded Allergies: No Known Allergies (Unverified , 07/19/16) Objective Vital Signs Last 24 Hour Vital Signs Date Time Temp Pulse Resp B/P Pulse Ox O2 Delivery O2 Flow Rate FiO2 07/22/16 08:11 104 116/71 07/22/16 07:37 97.0 104 20 116/71 93 Room Air 07/22/16 04:00 98.1 96 18 125/81 94 Room Air 07/22/16 00:00 96.4 64 18 97/63 100 Room Air 07/21/16 20:15 97.1 71 18 110/71 99 Room Air 07/21/16 19:46 68 16 Room Air 07/21/16 16:07 96.8 66 18 107/69 100 Room Air 07/21/16 11:46 98.0 60 15 116/73 100 Nasal Cannula Height (Feet): 6 Height (Inches): 0.00 Weight (Pounds): 175 HEENT: anicteric Respiratory/Chest: normal breath sounds, no accessory muscle use Cardiovascular: regular rhythm Abdomen: soft, non tender, no organomegaly Microbiology Date/Time Source Procedure Growth Status 07/19/16 17:30 Blood Blood Culture - Preliminary NO GROWTH AFTER 48 HOURS Resulted 07/19/16 17:15 Blood Blood Culture - Preliminary NO GROWTH AFTER 48 HOURS Resulted 07/19/16 19:20 Nasal Nares MRSA Culture - Final NO METHICILLIN RESISTANT STAPH AUREUS... Complete 07/19/16 18:00 Urine,Clean Catch Urine Culture - Final Escherichia Coli Complete 07/19/16 19:20 Rectum VRE Culture - Final NO VANCOMYCIN RESISTANT ENTEROCOCCUS ... Complete Laboratory Tests Test 07/22/16 07:35 White Blood Count 1.8 K/UL (4.8-10.8) *L Red Blood Count 5.14 M/UL (4.70-6.10) Hemoglobin 11.8 G/DL (14.2-18.0) L Hematocrit 36.8 % (42.0-52.0) L Mean Corpuscular Volume 72 FL (80-99) L Mean Corpuscular Hemoglobin 22.9 PG (27.0-31.0) L Mean Corpuscular Hemoglobin Concent 32.1 G/DL (32.0-36.0) Red Cell Distribution Width 14.3 % (11.6-14.8) Platelet Count 149 K/UL (150-450) L Mean Platelet Volume 8.9 FL (6.5-10.1) Neutrophils (%) (Auto) % (45.0-75.0) Lymphocytes (%) (Auto) % (20.0-45.0) Monocytes (%) (Auto) % (1.0-10.0) Eosinophils (%) (Auto) % (0.0-3.0) Basophils (%) (Auto) % (0.0-2.0) Differential Total Cells Counted 100 Neutrophils % (Manual) 53 % (45-75) Lymphocytes % (Manual) 17 % (20-45) L Monocytes % (Manual) 27 % (1-10) H Eosinophils % (Manual) 0 % (0-3) Basophils % (Manual) 0 % (0-2) Band Neutrophils 3 % (0-8) Nucleated Red Blood Cells 1 /100 WBC Platelet Estimate Decreased L Platelet Morphology Normal Red Blood Cell Morphology Microcytosis 1+ Acanthocytes Occasional Prothrombin Time 11.0 SEC (9.30-11.50) Prothromb Time International Ratio 1.1 (0.9-1.1) Activated Partial Thromboplast Time 35 SEC (23-33) H Sodium Level 139 mEQ/L (135-145) Potassium Level 3.8 mEQ/L (3.4-4.9) Chloride Level 97 mEQ/L (98-107) L Carbon Dioxide Level 31 mEQ/L (20-30) H Anion Gap 11 (5-15) Blood Urea Nitrogen 9 mg/dL (7-23) Creatinine 0.6 mg/dL (0.7-1.2) L Estimat Glomerular Filtration Rate > 60 mL/min (>60) Glucose Level 89 mg/dL (74-106) Calcium Level 9.5 mg/dL (8.6-10.2) Phosphorus Level 3.4 mg/dL (2.5-4.8) Magnesium Level 1.7 mg/dL (1.7-2.5) Total Bilirubin < 0.2 mg/dL (0.0-1.2) Aspartate Amino Transf (AST/SGOT) 26 U/L (5-40) Alanine Aminotransferase (ALT/SGPT) 53 U/L (3-41) H Alkaline Phosphatase 74 U/L (40-129) Total Protein 5.9 g/dL (6.6-8.7) L Albumin 3.3 g/dL (3.5-5.2) L Globulin 2.6 g/dL Albumin/Globulin Ratio 1.2 (1.0-2.7) Current Medications Medications (Trade) Dose Ordered Sig/Ayo Route PRN Reason Start Time Stop Time Status Last Admin Dose Admin Acetaminophen (Tylenol) 650 mg Q4H PRN ORAL fever 07/19/16 22:15 08/18/16 22:14 Al Hydroxide/Mg Hydroxide (Mylanta II) 30 ml Q6H PRN ORAL dyspepsia 07/19/16 22:15 08/18/16 22:14 Albuterol/ Ipratropium (DuoNeb 0.5-3(2.5)mg/3ml) 3 ml Q4H PRN HHN Shortness of Breath 07/19/16 22:15 07/24/16 22:14 Cefazolin Sodium/ Dextrose (Ancef/D5W 50ml) 50 ml @ 100 mls/hr Q8HR IVPB 07/21/16 14:00 07/28/16 13:59 07/22/16 05:30 Dextrose 1,000 ml @ 75 mls/hr [id number] IV 07/20/16 17:30 08/19/16 17:29 07/22/16 08:25 Dextrose STAT PRN IV Hypoglycemia 07/19/16 22:15 08/18/16 22:14 07/20/16 16:25 Heparin Sodium (Porcine) (Heparin 5000 units/ml) 5,000 units EVERY 12 HOURS SUBQ 07/20/16 09:00 08/19/16 08:59 Metoprolol Succinate (Toprol XL) 50 mg DAILY ORAL 07/20/16 09:00 08/19/16 08:59 07/22/16 08:11 Nitroglycerin (Ntg) 0.4 mg Q5M PRN SL Prn Chest Pain 07/19/16 22:15 08/18/16 22:14 Olanzapine (ZyPREXA) 5 mg DAILY ORAL 07/20/16 09:00 08/19/16 08:59 07/22/16 08:11 Ondansetron HCl (Zofran) 4 mg Q6H PRN IVP Nausea & Vomiting 07/19/16 22:15 08/18/16 22:14 Polyethylene Glycol (Miralax) 17 gm DAILYPRN PRN ORAL Constipation 07/19/16 22:15 08/18/16 22:14 07/22/16 08:11 Promethazine HCl/ Codeine (Phenergan with Codeine) 5 ml Q4H PRN ORAL For Cough 07/21/16 14:30 08/20/16 14:29 Quetiapine Fumarate (SEROquel) 200 mg BID ORAL 07/20/16 09:00 08/19/16 08:59 07/22/16 08:11 Temazepam (Restoril) 15 mg HSPRN PRN ORAL Insomnia 07/19/16 22:15 07/26/16 22:14 DENZEL WEAVER M.D. Jul 22, 2016 10:30
[2016-07-22 11:19] VITALS: BP 105/52
[2016-07-22] MEDS ORDERED: Tubing IV Secondary IV ONE ×2 (13:12→17:52)
--- NOTE | 2016-07-22 15:58 | Pulmonology Progress Note ---
Assessment/Plan Problems: (1) Sepsis (2) Hypothermia (3) Leukopenia (4) UTI (urinary tract infection) (5) Acute encephalopathy (6) Mental retardation (7) HTN (hypertension) (8) Diabetes Assessment/Plan continue antibiotics cogentin + Benadryl for locked jaw Neuro consult called f/u cultures check blood sugar Subjective ROS Limited/Unobtainable: Yes - pt had locked jaw Allergies: Coded Allergies: No Known Allergies (Unverified , 07/19/16) Objective Last 24 Hour Vital Signs Date Time Temp Pulse Resp B/P Pulse Ox O2 Delivery O2 Flow Rate FiO2 07/22/16 11:19 98.8 90 15 105/52 96 Room Air 07/22/16 08:11 104 116/71 07/22/16 07:57 108 16 Room Air 07/22/16 07:37 97.0 104 20 116/71 93 Room Air 07/22/16 04:00 98.1 96 18 125/81 94 Room Air 07/22/16 00:00 96.4 64 18 97/63 100 Room Air 07/21/16 20:15 97.1 71 18 110/71 99 Room Air 07/21/16 19:46 68 16 Room Air 07/21/16 16:07 96.8 66 18 107/69 100 Room Air Intake and Output 07/21/16 07/22/16 19:00 07:00 Intake Total 1425 ml 1275 ml Output Total 1300 ml 2100 ml Balance 125 ml -825 ml Intake Oral 400 ml 450 ml IV Total 1025 ml 825 ml Output Urine Total 1300 ml 2100 ml General Appearance: WD/WN HEENT: normocephalic Respiratory/Chest: chest wall non-tender Cardiovascular: normal peripheral pulses, normal rate Abdomen: normal bowel sounds, soft, non tender Genitourinary: normal external genitalia Skin: no rash Microbiology Date/Time Source Procedure Growth Status 07/19/16 17:30 Blood Blood Culture - Preliminary NO GROWTH AFTER 48 HOURS Resulted 07/19/16 17:15 Blood Blood Culture - Preliminary NO GROWTH AFTER 48 HOURS Resulted 07/21/16 15:35 Sputum Gram Stain - Final Resulted 07/21/16 15:35 Sputum Sputum Culture Pending Resulted 07/19/16 19:20 Nasal Nares MRSA Culture - Final NO METHICILLIN RESISTANT STAPH AUREUS... Complete 07/19/16 18:00 Urine,Clean Catch Urine Culture - Final Escherichia Coli Complete 07/19/16 19:20 Rectum VRE Culture - Final NO VANCOMYCIN RESISTANT ENTEROCOCCUS ... Complete Laboratory Tests 07/22/16 07:35: White Blood Count 1.8*L, Red Blood Count 5.14, Hemoglobin 11.8L, Hematocrit 36.8L, Mean Corpuscular Volume 72L, Mean Corpuscular Hemoglobin 22.9L, Mean Corpuscular Hemoglobin Concent 32.1, Red Cell Distribution Width 14.3, Platelet Count 149L, Mean Platelet Volume 8.9, Neutrophils (%) (Auto) , Lymphocytes (%) ( Auto) , Monocytes (%) (Auto) , Eosinophils (%) (Auto) , Basophils (%) (Auto) , Differential Total Cells Counted 100, Neutrophils % (Manual) 53, Lymphocytes % ( Manual) 17L, Monocytes % (Manual) 27H, Eosinophils % (Manual) 0, Basophils % ( Manual) 0, Band Neutrophils 3, Nucleated Red Blood Cells 1, Platelet Estimate DecreasedL, Platelet Morphology Normal, Red Blood Cell Morphology , Microcytosis 1+, Acanthocytes Occasional, Prothrombin Time 11.0, Prothromb Time International Ratio 1.1, Activated Partial Thromboplast Time 35H, Sodium Level 139, Potassium Level 3.8, Chloride Level 97L, Carbon Dioxide Level 31H, Anion Gap 11, Blood Urea Nitrogen 9, Creatinine 0.6L, Estimat Glomerular Filtration Rate > 60, Glucose Level 89, Calcium Level 9.5, Phosphorus Level 3.4, Magnesium Level 1.7, Total Bilirubin < 0.2, Aspartate Amino Transf (AST/SGOT) 26, Alanine Aminotransferase (ALT/SGPT) 53H, Alkaline Phosphatase 74, Total Protein 5.9L, Albumin 3.3L, Globulin 2.6, Albumin/Globulin Ratio 1.2 Current Medications Medications (Trade) Dose Ordered Sig/Ayo Route PRN Reason Start Time Stop Time Status Last Admin Dose Admin Acetaminophen (Tylenol) 650 mg Q4H PRN ORAL fever 07/19/16 22:15 08/18/16 22:14 Al Hydroxide/Mg Hydroxide (Mylanta II) 30 ml Q6H PRN ORAL dyspepsia 07/19/16 22:15 08/18/16 22:14 Albuterol/ Ipratropium (DuoNeb 0.5-3(2.5)mg/3ml) 3 ml Q4H PRN HHN Shortness of Breath 07/19/16 22:15 07/24/16 22:14 Benztropine Mesylate (Cogentin) 1 mg DAILY ORAL 07/23/16 09:00 08/22/16 08:59 Cefazolin Sodium/ Dextrose (Ancef/D5W 50ml) 50 ml @ 100 mls/hr Q8HR IVPB 07/21/16 14:00 07/28/16 13:59 07/22/16 14:25 Dextrose 1,000 ml @ 75 mls/hr [id number] IV 07/20/16 17:30 08/19/16 17:29 07/22/16 08:25 Dextrose STAT PRN IV Hypoglycemia 07/19/16 22:15 08/18/16 22:14 07/20/16 16:25 Diphenhydramine HCl (Benadryl) 50 mg ONCE ONCE IVP 07/22/16 16:00 07/22/16 16:01 07/22/16 15:34 Heparin Sodium (Porcine) (Heparin 5000 units/ml) 5,000 units EVERY 12 HOURS SUBQ 07/20/16 09:00 08/19/16 08:59 Metoprolol Succinate (Toprol XL) 50 mg DAILY ORAL 07/20/16 09:00 08/19/16 08:59 07/22/16 08:11 Nitroglycerin (Ntg) 0.4 mg Q5M PRN SL Prn Chest Pain 07/19/16 22:15 08/18/16 22:14 Olanzapine (ZyPREXA) 5 mg DAILY ORAL 07/20/16 09:00 08/19/16 08:59 07/22/16 08:11 Ondansetron HCl (Zofran) 4 mg Q6H PRN IVP Nausea & Vomiting 07/19/16 22:15 08/18/16 22:14 Polyethylene Glycol (Miralax) 17 gm DAILYPRN PRN ORAL Constipation 07/19/16 22:15 08/18/16 22:14 07/22/16 08:11 Promethazine HCl/ Codeine (Phenergan with Codeine) 5 ml Q4H PRN ORAL For Cough 07/21/16 14:30 08/20/16 14:29 Quetiapine Fumarate (SEROquel) 200 mg BID ORAL 07/20/16 09:00 08/19/16 08:59 07/22/16 08:11 Temazepam (Restoril) 15 mg HSPRN PRN ORAL Insomnia 07/19/16 22:15 07/26/16 22:14 REBECCA SCHNEIDER Jul 22, 2016 15:58
[2016-07-22 16:00] VITALS: BP 103/66
[2016-07-22] MEDS ORDERED: DiphenhydrAMINE 50mg/ml Inj IVP ONE ×3 (16:00→22:45)
[2016-07-22 19:00] VITALS: BP 126/84
[2016-07-23] VITALS: BP 110/71
[2016-07-23 04:00] VITALS: BP 113/71
--- NOTE | 2016-07-23 06:20 | General Progress Note ---
Assessment/Plan Problem List: (1) Diabetes ICD Codes: E11.9 - Type 2 diabetes mellitus without complications SNOMED: 96199450 (2) Mental retardation ICD Codes: F79 - Unspecified intellectual disabilities SNOMED: 47976150, 672403446, 857273193 (3) HTN (hypertension) ICD Codes: I10 - Essential (primary) hypertension SNOMED: 35068492 (4) Sepsis ICD Codes: A41.9 - Sepsis, unspecified organism SNOMED: 72654931 Qualifiers: Qualified Codes: A41.9 - Sepsis, unspecified organism (5) Acute encephalopathy ICD Codes: G93.40 - Encephalopathy, unspecified SNOMED: 3893938 (6) Hypoglycemia ICD Codes: E16.2 - Hypoglycemia, unspecified SNOMED: 304743552 Assessment/Plan continue dextrose low rate continue blood glucose monitoring without insulin coverage Subjective ROS Limited/Unobtainable: Yes Allergies: Coded Allergies: No Known Allergies (Unverified , 07/19/16) Subjective events noted Objective Last 24 Hour Vital Signs Date Time Temp Pulse Resp B/P Pulse Ox O2 Delivery O2 Flow Rate FiO2 07/23/16 04:00 96.6 71 18 113/71 96 Room Air 07/23/16 00:00 96.4 81 20 110/71 94 Room Air 07/22/16 19:00 96.8 84 20 126/84 90 Room Air 07/22/16 18:30 95 18 Room Air 07/22/16 16:00 97.5 94 20 103/66 93 Room Air 07/22/16 11:19 98.8 90 15 105/52 96 Room Air 07/22/16 08:11 104 116/71 07/22/16 07:57 108 16 Room Air 07/22/16 07:37 97.0 104 20 116/71 93 Room Air Intake and Output 07/22/16 07/23/16 19:00 07:00 Intake Total 775 ml 275 ml Output Total 300 ml 650 ml Balance 475 ml -375 ml Intake Oral 100 ml IV Total 675 ml 275 ml Output Urine Total 300 ml 650 ml Laboratory Tests 07/22/16 07:35: White Blood Count 1.8*L, Red Blood Count 5.14, Hemoglobin 11.8L, Hematocrit 36.8L, Mean Corpuscular Volume 72L, Mean Corpuscular Hemoglobin 22.9L, Mean Corpuscular Hemoglobin Concent 32.1, Red Cell Distribution Width 14.3, Platelet Count 149L, Mean Platelet Volume 8.9, Neutrophils (%) (Auto) , Lymphocytes (%) ( Auto) , Monocytes (%) (Auto) , Eosinophils (%) (Auto) , Basophils (%) (Auto) , Differential Total Cells Counted 100, Neutrophils % (Manual) 53, Lymphocytes % ( Manual) 17L, Monocytes % (Manual) 27H, Eosinophils % (Manual) 0, Basophils % ( Manual) 0, Band Neutrophils 3, Nucleated Red Blood Cells 1, Platelet Estimate DecreasedL, Platelet Morphology Normal, Red Blood Cell Morphology , Microcytosis 1+, Acanthocytes Occasional, Prothrombin Time 11.0, Prothromb Time International Ratio 1.1, Activated Partial Thromboplast Time 35H, Sodium Level 139, Potassium Level 3.8, Chloride Level 97L, Carbon Dioxide Level 31H, Anion Gap 11, Blood Urea Nitrogen 9, Creatinine 0.6L, Estimat Glomerular Filtration Rate > 60, Glucose Level 89, Calcium Level 9.5, Phosphorus Level 3.4, Magnesium Level 1.7, Total Bilirubin < 0.2, Aspartate Amino Transf (AST/SGOT) 26, Alanine Aminotransferase (ALT/SGPT) 53H, Alkaline Phosphatase 74, Total Protein 5.9L, Albumin 3.3L, Globulin 2.6, Albumin/Globulin Ratio 1.2 Height (Feet): 6 Height (Inches): 0.00 Weight (Pounds): 175 General Appearance: no apparent distress Neck: normal alignment Cardiovascular: normal rate Respiratory/Chest: decreased breath sounds Abdomen: normal bowel sounds Objective Current Medications Medications (Trade) Dose Ordered Sig/Ayo Route PRN Reason Start Time Stop Time Status Last Admin Dose Admin Acetaminophen (Tylenol) 650 mg Q4H PRN ORAL fever 07/19/16 22:15 08/18/16 22:14 Al Hydroxide/Mg Hydroxide (Mylanta II) 30 ml Q6H PRN ORAL dyspepsia 07/19/16 22:15 08/18/16 22:14 Albuterol/ Ipratropium (DuoNeb 0.5-3(2.5)mg/3ml) 3 ml Q4H PRN HHN Shortness of Breath 07/19/16 22:15 07/24/16 22:14 Benztropine Mesylate (Cogentin) 1 mg DAILY ORAL 07/23/16 09:00 08/22/16 08:59 Cefazolin Sodium/ Dextrose (Ancef/D5W 50ml) 50 ml @ 100 mls/hr Q8HR IVPB 07/21/16 14:00 07/28/16 13:59 07/23/16 05:26 Dextrose 1,000 ml @ 75 mls/hr [id number] IV 07/20/16 17:30 08/19/16 17:29 07/22/16 22:21 Dextrose STAT PRN IV Hypoglycemia 07/19/16 22:15 08/18/16 22:14 07/20/16 16:25 Heparin Sodium (Porcine) (Heparin 5000 units/ml) 5,000 units EVERY 12 HOURS SUBQ 07/20/16 09:00 08/19/16 08:59 Metoprolol Succinate (Toprol XL) 50 mg DAILY ORAL 07/20/16 09:00 08/19/16 08:59 07/22/16 08:11 Nitroglycerin (Ntg) 0.4 mg Q5M PRN SL Prn Chest Pain 07/19/16 22:15 08/18/16 22:14 Olanzapine (ZyPREXA) 5 mg DAILY ORAL 07/20/16 09:00 08/19/16 08:59 07/22/16 08:11 Ondansetron HCl (Zofran) 4 mg Q6H PRN IVP Nausea & Vomiting 07/19/16 22:15 08/18/16 22:14 Polyethylene Glycol (Miralax) 17 gm DAILYPRN PRN ORAL Constipation 07/19/16 22:15 08/18/16 22:14 07/22/16 08:11 Promethazine HCl/ Codeine (Phenergan with Codeine) 5 ml Q4H PRN ORAL For Cough 07/21/16 14:30 08/20/16 14:29 Quetiapine Fumarate (SEROquel) 200 mg BID ORAL 07/20/16 09:00 08/19/16 08:59 07/22/16 08:11 Temazepam (Restoril) 15 mg HSPRN PRN ORAL Insomnia 07/19/16 22:15 07/26/16 22:14 Item Value Date Time Bedside Blood Glucose 91 mg/dl 07/22/162129 Bedside Blood Glucose 110 mg/dl 07/22/16 1700 Bedside Blood Glucose 99 mg/dl 07/22/16 1130 Bedside Blood Glucose 81 mg/dl 07/22/16 0556 FISH MACK Jul 23, 2016 06:20
[2016-07-23 07:33] VITALS: BP 112/71
[2016-07-23] MEDS: QUEtiapine 200mg tab ORAL SCH (08:53)
[2016-07-23] MEDS: Benztropine 1mg tab ORAL SCH (08:53)
[2016-07-23] MEDS: Heparin 5000 units/ml inj SUBQ SCH ×2 (08:54→20:36)
--- NOTE | 2016-07-23 10:10 | Infectious Diseases Prog Note ---
Assessment/Plan Assessment/Plan A: The patient is a 50-year-old male with Sepsis, SP SP hypothermia UTI EColi Leukopenia 2nd to Psych meds Hepatitis, mild, improved Hep B/ C : neg ? Psych disorder HTN DM PLAN: on IV Ancef d# 3 / , upon DC will change to po Keflex to complete the course ( 07/21 SP cefepime. d # 2 ) Monitor CBC. Monitor BMP. Monitor cultures (blood ) Recommend hematology/oncology evaluation Subjective Constitutional: Denies: anorexia, chills, drenching sweats, fatigue, fever, no symptoms, other Allergies: Coded Allergies: No Known Allergies (Unverified , 07/19/16) Objective Vital Signs Last 24 Hour Vital Signs Date Time Temp Pulse Resp B/P Pulse Ox O2 Delivery O2 Flow Rate FiO2 07/23/16 07:33 97.0 68 14 112/71 95 Room Air 07/23/16 07:15 95 18 Room Air 07/23/16 04:00 96.6 71 18 113/71 96 Room Air 07/23/16 00:00 96.4 81 20 110/71 94 Room Air 07/22/16 19:00 96.8 84 20 126/84 90 Room Air 07/22/16 18:30 95 18 Room Air 07/22/16 16:00 97.5 94 20 103/66 93 Room Air 07/22/16 11:19 98.8 90 15 105/52 96 Room Air Height (Feet): 6 Height (Inches): 0.00 Weight (Pounds): 175 HEENT: atraumatic Respiratory/Chest: lungs clear, normal breath sounds Cardiovascular: normal rate Abdomen: soft, non tender, non distended Microbiology Date/Time Source Procedure Growth Status 07/21/16 15:35 Sputum Gram Stain - Final Complete 07/21/16 15:35 Sputum Sputum Culture - Final NORMAL UPPER RESPIRATORY SUMEET PRESENT Complete Current Medications Medications (Trade) Dose Ordered Sig/Ayo Route PRN Reason Start Time Stop Time Status Last Admin Dose Admin Acetaminophen (Tylenol) 650 mg Q4H PRN ORAL fever 07/19/16 22:15 08/18/16 22:14 Al Hydroxide/Mg Hydroxide (Mylanta II) 30 ml Q6H PRN ORAL dyspepsia 07/19/16 22:15 08/18/16 22:14 Albuterol/ Ipratropium (DuoNeb 0.5-3(2.5)mg/3ml) 3 ml Q4H PRN HHN Shortness of Breath 07/19/16 22:15 07/24/16 22:14 Benztropine Mesylate (Cogentin) 1 mg DAILY ORAL 07/23/16 09:00 08/22/16 08:59 Cefazolin Sodium/ Dextrose (Ancef/D5W 50ml) 50 ml @ 100 mls/hr Q8HR IVPB 07/21/16 14:00 07/28/16 13:59 07/23/16 05:26 Dextrose 1,000 ml @ 75 mls/hr [id number] IV 07/20/16 17:30 08/19/16 17:29 07/22/16 22:21 Dextrose STAT PRN IV Hypoglycemia 07/19/16 22:15 08/18/16 22:14 07/20/16 16:25 Heparin Sodium (Porcine) (Heparin 5000 units/ml) 5,000 units EVERY 12 HOURS SUBQ 07/20/16 09:00 08/19/16 08:59 Metoprolol Succinate (Toprol XL) 50 mg DAILY ORAL 07/20/16 09:00 08/19/16 08:59 07/22/16 08:11 Nitroglycerin (Ntg) 0.4 mg Q5M PRN SL Prn Chest Pain 07/19/16 22:15 08/18/16 22:14 Olanzapine (ZyPREXA) 5 mg DAILY ORAL 07/20/16 09:00 08/19/16 08:59 07/22/16 08:11 Ondansetron HCl (Zofran) 4 mg Q6H PRN IVP Nausea & Vomiting 07/19/16 22:15 08/18/16 22:14 Polyethylene Glycol (Miralax) 17 gm DAILYPRN PRN ORAL Constipation 07/19/16 22:15 08/18/16 22:14 07/22/16 08:11 Promethazine HCl/ Codeine (Phenergan with Codeine) 5 ml Q4H PRN ORAL For Cough 07/21/16 14:30 08/20/16 14:29 Quetiapine Fumarate (SEROquel) 200 mg BID ORAL 07/20/16 09:00 08/19/16 08:59 07/22/16 08:11 Temazepam (Restoril) 15 mg HSPRN PRN ORAL Insomnia 07/19/16 22:15 07/26/16 22:14 DENZEL WEAVER M.D. Jul 23, 2016 10:10
[2016-07-23 11:42] VITALS: BP 137/74
--- NOTE | 2016-07-23 12:33 | Neurology Progress Note ---
Interim History Interim History ROS Limited/Unobtainable: Yes Objective Physical Exam Last Vital Signs Date Time Temp Pulse Resp B/P Pulse Ox O2 Delivery O2 Flow Rate FiO2 07/23/16 11:42 97.0 65 14 137/74 96 Room Air Impression/Recommendations Problems: (1) Torticollis, acute (2) paraparesis. r/o spinal cord lesion (3) r/o leukemoid reaction vs. leukemia (4) Elevated transaminase level (5) Pancytopenia (6) Hypothermia (7) probablyjaw dislocation Status: unchanged Recommendations #[id number] SAVANNAH LEMUS Jul 23, 2016 12:33
--- NOTE | 2016-07-23 15:02 | Pulmonology Progress Note ---
Assessment/Plan Problems: (1) Sepsis (2) Hypothermia (3) Leukopenia (4) UTI (urinary tract infection) (5) Acute encephalopathy (6) Mental retardation (7) HTN (hypertension) (8) Diabetes Assessment/Plan continue antibiotics Neuro consult appreciated Jaw was apparently dislocated and was put back f/u cultures check blood sugar check cbc in am, d/w with pathologist about bone marrow biopsy. Subjective ROS Limited/Unobtainable: No Constitutional: Reports: no symptoms HEENT: Repors: no symptoms Cardiovascular: Reports: no symptoms Allergies: Coded Allergies: No Known Allergies (Unverified , 07/19/16) Objective Last 24 Hour Vital Signs Date Time Temp Pulse Resp B/P Pulse Ox O2 Delivery O2 Flow Rate FiO2 07/23/16 11:42 97.0 65 14 137/74 96 Room Air 07/23/16 07:33 97.0 68 14 112/71 95 Room Air 07/23/16 07:15 95 18 Room Air 07/23/16 04:00 96.6 71 18 113/71 96 Room Air 07/23/16 00:00 96.4 81 20 110/71 94 Room Air 07/22/16 19:00 96.8 84 20 126/84 90 Room Air 07/22/16 18:30 95 18 Room Air 07/22/16 16:00 97.5 94 20 103/66 93 Room Air Intake and Output 07/22/16 07/23/16 19:00 07:00 Intake Total 775 ml 700 ml Output Total 300 ml 650 ml Balance 475 ml 50 ml Intake Oral 100 ml IV Total 675 ml 700 ml Output Urine Total 300 ml 650 ml General Appearance: WD/WN HEENT: normocephalic Respiratory/Chest: chest wall non-tender, normal breath sounds Cardiovascular: normal peripheral pulses, normal rate Abdomen: normal bowel sounds, soft, non tender Genitourinary: normal external genitalia Extremities: no clubbing Skin: no lesions Microbiology Date/Time Source Procedure Growth Status 07/21/16 15:35 Sputum Gram Stain - Final Complete 07/21/16 15:35 Sputum Sputum Culture - Final NORMAL UPPER RESPIRATORY SUMEET PRESENT Complete Current Medications Medications (Trade) Dose Ordered Sig/Ayo Route PRN Reason Start Time Stop Time Status Last Admin Dose Admin Acetaminophen (Tylenol) 650 mg Q4H PRN ORAL fever 07/19/16 22:15 08/18/16 22:14 Al Hydroxide/Mg Hydroxide (Mylanta II) 30 ml Q6H PRN ORAL dyspepsia 07/19/16 22:15 08/18/16 22:14 Albuterol/ Ipratropium (DuoNeb 0.5-3(2.5)mg/3ml) 3 ml Q4H PRN HHN Shortness of Breath 07/19/16 22:15 07/24/16 22:14 Benztropine Mesylate (Cogentin) 1 mg DAILY ORAL 07/23/16 09:00 08/22/16 08:59 Cefazolin Sodium/ Dextrose (Ancef/D5W 50ml) 50 ml @ 100 mls/hr Q8HR IVPB 07/21/16 14:00 07/28/16 13:59 07/23/16 14:04 Dextrose 1,000 ml @ 75 mls/hr [id number] IV 07/20/16 17:30 08/19/16 17:29 07/23/16 12:40 Dextrose STAT PRN IV Hypoglycemia 07/19/16 22:15 08/18/16 22:14 07/20/16 16:25 Heparin Sodium (Porcine) (Heparin 5000 units/ml) 5,000 units EVERY 12 HOURS SUBQ 07/20/16 09:00 08/19/16 08:59 Metoprolol Succinate (Toprol XL) 50 mg DAILY ORAL 07/20/16 09:00 08/19/16 08:59 07/22/16 08:11 Nitroglycerin (Ntg) 0.4 mg Q5M PRN SL Prn Chest Pain 07/19/16 22:15 08/18/16 22:14 Ondansetron HCl (Zofran) 4 mg Q6H PRN IVP Nausea & Vomiting 07/19/16 22:15 08/18/16 22:14 Polyethylene Glycol (Miralax) 17 gm DAILYPRN PRN ORAL Constipation 07/19/16 22:15 08/18/16 22:14 07/22/16 08:11 Promethazine HCl/ Codeine (Phenergan with Codeine) 5 ml Q4H PRN ORAL For Cough 07/21/16 14:30 08/20/16 14:29 Quetiapine Fumarate (SEROquel) 50 mg BID ORAL 07/23/16 18:00 1/28/17 17:59 Temazepam (Restoril) 15 mg HSPRN PRN ORAL Insomnia 07/19/16 22:15 07/26/16 22:14 REBECCA SCHNEIDER Jul 23, 2016 15:02
[2016-07-23 16:00] VITALS: BP 144/70
--- NOTE | 2016-07-23 16:40 | Diagnostic Imaging Report ---
Indication: Neck pain x1 week Technique: Spiral acquisitions obtained through the cervical spine. No IV contrast utilized. Multiplanar reconstructions were generated. Total dose length product 24 mGycm. CTDIvol(s) working and 18 mGy Comparison: None Findings: There is straightening of the normal cervical lordosis. Otherwise normal bony alignment. There is multilevel degenerative disc narrowing. There is very slight wedge deformity of the C6 vertebral body. Suspect that this is secondary to degenerative remodeling, although could be posttraumatic. No acute fractures. No dislocations. Fairly extensive degenerative change, as detailed on a level by level basis above. There is fusion, presumed congenital, of the C2-3 vertebral bodies and facets and posterior elements. At C2-3, as mentioned above, there is congenital absence of the disc and facets. There is mild bilateral neural foramina stenosis at this level. No spinal stenosis is evident. At C3-4, there is broad-based central posterior disc protrusion, which narrows the spinal canal to 7 mm minimum AP dimension. There is severe right, moderate to severe left neural foraminal stenosis at this level. At C4-5, there is broad-based central posterior disc protrusion, which narrows the spinal canal to 8 mm minimum AP dimension. There is moderate to severe bilateral neural foraminal stenosis at this level. At C5-6, there is left paracentral posterior different protrusion, which impinges upon the anterior left lateral aspect of the cord. There is mild right, mild to moderate left neural foraminal stenosis at this level. At C6-7, there is central posterior disc protrusion, which results in only mild spinal canal stenosis. There is mild right and mild to moderate left neural foraminal stenosis. At C7-T1, no significant disc bulge or protrusion or spinal stenosis. There is mild to moderate bilateral neural foraminal stenosis. There is considerable generalized edema of the subcutaneous fat, which severely limits soft tissue detail. 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
[2016-07-23 19:00] VITALS: BP 119/67
--- NOTE | 2016-07-23 21:28 | Consultation ---
DATE OF CONSULTATION: 07/23/2016 NEUROLOGICAL CONSULTATION REQUESTING PHYSICIAN: Iman Cunha M.D. HISTORY OF PRESENT ILLNESS: The patient is a 50-year-old male seen in neurological consultation to evaluate the presence of extrapyramidal abnormalities. The patient unable to provide with any history and this was obtained from medical records and conversation with nursing staff. The patient apparently was becoming increasingly weak in last few weeks, he was noted to be hypoglycemic, had episodes of near syncope with almost falling. The patient was brought to emergency room with vital signs, blood pressure 105/51, heart rate of 77, imaging studies included chest x-ray, hazy appearance of the left base suggesting atelectasis or infiltrates, abdominal ultrasound shows hepatomegaly, renal cyst, laboratory studies included WBC 0.9, hemoglobin 12.8 and hematocrit 40.7, and platelets 128,000, coagulation panel, normal urinalysis 4+ glucose. Chemistry panel with carbon dioxide of 31, blood sugar 226, calcium 10.9, lactic acid 3.73. Elevated AST 67, ALT 103, hepatitis panel negative. The patient was started on IV fluids and antibiotics, The patient was noted to be able to chew and eat but since yesterday he stopped eating, felt that he may have . PAST MEDICAL HISTORY: The patient has a history of mental retardation with mutism, he remained nonverbal. He has a history of hypertension and diabetes. ALLERGIES: None reported. TREATMENT PRIOR TO ADMISSION: Benztropine, vitamin D supplement, loratadine, metformin, metoprolol, Zyprexa 10 mg daily, Actos, quetiapine 200 mg twice a day, simvastatin 20 mg at bedtime, and zolpidem. SOCIAL HISTORY: No evidence of alcohol or drug abuse. Nonsmoker. FAMILY HISTORY: Unavailable. REVIEW OF SYMPTOMS: Not obtained due to patient's status. PHYSICAL EXAMINATION: GENERAL: Well-developed, somewhat ill-appearing and poorly nourished man, not in acute distress, lying in be. HEENT: Head turned to the left. His mouth is open. TMJ deformity palpated. EXTREMITIES: Upper and lower extremities without clubbing, cyanosis, or edema. There is some bruises on his lower extremities. Peripheral pulses 1+ symmetric. SKIN: unremarkable. No rash. MENTAL STATUS: The patient is alert, has a brief eye contact, but does not follow commands. Nonverbal and mute. CRANIAL NERVE II: Pupils both responding to light and accommodation. Extraocular movement intact. No nystagmus. CRANIAL NERVE V: Normal corneal responses. CRANIAL NERVE VII: No gross facial asymmetry. Mouth constantly open. CRANIAL NERVE VIII: Grossly normal hearing. CRANIAL NERVE IX THROUGH XII: Slightly reduced gag response. MOTOR EXAMINATION: On stimulation was able to move legs but remain with arms and legs not actively moving. When lifting both arms, appears falling down, without control more pronounced on the left side. On sternal rub, there was a slight movement on both arms. Muscle tone normal. Deep tendon reflexes depressed bilaterally. Plantar response is mute. No pathological responses. Negative Babinski sign. The patient remained with left-sided torticollis. IMPRESSION: 1. New onset of left-sided torticollis and paraparesis, rule out cervical spine dislocation with cord compression. 2. Bilateral jaw dislocation. 3. Abnormal liver enzymes. 4. Hypertension. 5. Diabetes type 2. 6. Mental retardation with mutism. 7. Severe leukopenia as well as anemia/thrombocytopenia, rule out leukemoid reaction, rule out drug toxicity, rule out leukemia. 8. Speech therapy to check swallow study, hold feeding. 9. Discontinue all unessential medication, olanzapine, simvastatin, down 250 mg twice a day. 10. X-ray of the both mandibles as well as cervical spine AP and lateral will be obtained as well as CT scan of the cervical spine to rule out intraspinal abnormality. 11. Meanwhile get neck collar. We will follow with you. Thank you for allowing me to see this interesting patient in neurological consultation. Aníbal Olivo M.D. DR: Chapo JOB#: [id number] CC:
[2016-07-24] VITALS (7 sets, daily range): BP systolic 105–121; BP diastolic 61–79
--- NOTE | 2016-07-24 05:28 | Consultation ---
DATE OF CONSULTATION: HISTORY OF PRESENT ILLNESS: He is a 50-year-old male who was seen yesterday. He has developmental disabilities as well as psychotic disorder. Psychiatry was consulted due to EPS and possible tardive dyskinesia. During the evaluation, the patient was confused and disoriented. He was unable to provide any history. His jaw was dislocated and placed back. I discontinued his Zyprexa yesterday prior to seeing him when I was informed that he has BPH symptoms. He also has been taking Seroquel 400 mg daily, which was reduced to 50 mg b.i.d. by Neurologist, and, the Seroquel was decreased. this medication does not cause much EPS symptoms. The patient currently is calm and cooperative. No anxiety or agitation. His behaviors and psychotic will increase the Seroquel. PAST PSYCHIATRIC HISTORY: He has a history of psychotic disorder and mental disability. The patient is nonverbal. PAST MEDICAL HISTORY: Significant for hypertension and diabetes. ALLERGIES: No known drug allergies. MEDICATIONS: Include: 1. Benztropine. 2. Metoprolol. 3. Seroquel. 4. . SUBSTANCE ABUSE HISTORY: No history of illicit drug use or alcohol. FAMILY HISTORY: None reported. MENTAL STATUS EXAMINATION: The patient is confused and disoriented. Mood is neutral. Affect is constricted. Congruent mood. Thought process is paucity of thought content. The patient is nonverbal. Cognition is impaired. agitation or retardation. Insight and judgment is nonexistent. ASSESSMENT: AXIS I: Psychotic disorder, delirium. AXIS II: Developmental behaviors. AXIS III: As above. AXIS IV: Low. AXIS V: 5 to 10. PLAN: I will discontinue the Zyprexa. Levy Powell M.D. DR: Fidelia JOB#: [id number] CC: NICHOLAS
[2016-07-24 07:11] LABS: BASOPHILS % (AUTO) 0.6 % (0.0-2.0); EOSINOPHILS % (AUTO) 0.1 % (0.0-3.0); LYMPHOCYTES % (AUTO) 12.3 % (20.0-45.0); MEAN CORPUSCULAR HEMOGLOBIN 23.3 PG (27.0-31.0); MEAN CORPUSCULAR HGB CONC 32.6 G/DL (32.0-36.0); MEAN CORPUSCULAR VOLUME 72 FL (80-99); MEAN PLATELET VOLUME 7.6 FL (6.5-10.1); MONOCYTES % (AUTO) 12.5 % (1.0-10.0); NEUTROPHILS % (AUTO) 74.4 % (45.0-75.0); PLATELET COUNT 137 K/UL (150-450); RED BLOOD COUNT 4.72 M/UL (4.70-6.10); RED CELL DISTRIBUTION WIDTH 14.4 % (11.6-14.8); WHITE BLOOD COUNT 6.4 K/UL (4.8-10.8)
[2016-07-24 07:43] LABS: ALANINE AMINOTRANSFERASE 61 U/L (3-41); ANION GAP 9 (5-15); ASPARTATE AMINO TRANSFERASE 67 U/L (5-40); CALCIUM 9.3 mg/dL (8.6-10.2); CARBON DIOXIDE 32 mEQ/L (20-30); CHLORIDE 97 mEQ/L (98-107); CREATININE 0.5 mg/dL (0.7-1.2); CRP QUANT 16.3 mg/dL (< 0.5); GLOMERULAR FILTRATION RATE > 60 mL/min (>60); HEMOLYSIS 4; MAGNESIUM 1.8 mg/dL (1.7-2.5); PHOSPHORUS 2.5 mg/dL (2.5-4.8); POTASSIUM 3.7 mEQ/L (3.4-4.9); SODIUM 138 mEQ/L (135-145); TOTAL PROTEIN 6.1 g/dL (6.6-8.7)
[2016-07-24 08:22] LABS: ERYTHROCYTE SEDIMENTATION RATE 41 MM/HR (0-20)
[2016-07-24] MEDS: Heparin 5000 units/ml inj SUBQ SCH ×2 (09:00→20:00)
--- NOTE | 2016-07-24 09:42 | Infectious Diseases Prog Note ---
Assessment/Plan Assessment/Plan A: The patient is a 50-year-old male with Sepsis, SP SP hypothermia UTI EColi Leukopenia improved ? 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 Psych disorder HTN DM PLAN: on IV Ancef d# 4 / , upon DC will change to po Keflex to complete the course ( 07/21 SP cefepime. d # 2 ) Monitor CBC. Monitor BMP. Monitor cultures (blood ) Recommend hematology/oncology evaluation Subjective Constitutional: Denies: anorexia, chills, drenching sweats, fatigue, fever, no symptoms, other Allergies: Coded Allergies: No Known Allergies (Unverified , 07/19/16) Subjective SP fall Objective Vital Signs Last 24 Hour Vital Signs Date Time Temp Pulse Resp B/P Pulse Ox O2 Delivery O2 Flow Rate FiO2 07/24/16 07:38 97.0 60 16 112/62 99 Room Air 07/24/16 07:24 60 20 Room Air 07/24/16 03:56 98.7 63 20 121/73 99 Room Air 07/24/16 00:00 98.2 72 20 119/72 92 Room Air 07/23/16 19:50 99 18 Room Air 07/23/16 19:00 97.5 100 20 119/67 94 Room Air 07/23/16 16:00 97.5 83 20 144/70 95 Room Air 07/23/16 11:42 97.0 65 14 137/74 96 Room Air Height (Feet): 6 Height (Inches): 0.00 Weight (Pounds): 175 HEENT: anicteric Respiratory/Chest: normal breath sounds Cardiovascular: normal peripheral pulses Abdomen: soft, non tender Microbiology Date/Time Source Procedure Growth Status 07/21/16 15:35 Sputum Gram Stain - Final Complete 07/21/16 15:35 Sputum Sputum Culture - Final NORMAL UPPER RESPIRATORY SUMEET PRESENT Complete Laboratory Tests Test 07/24/16 06:15 White Blood Count 6.4 K/UL (4.8-10.8) Red Blood Count 4.72 M/UL (4.70-6.10) Hemoglobin 11.0 G/DL (14.2-18.0) L Hematocrit 33.9 % (42.0-52.0) L Mean Corpuscular Volume 72 FL (80-99) L Mean Corpuscular Hemoglobin 23.3 PG (27.0-31.0) L Mean Corpuscular Hemoglobin Concent 32.6 G/DL (32.0-36.0) Red Cell Distribution Width 14.4 % (11.6-14.8) Platelet Count 137 K/UL (150-450) L Mean Platelet Volume 7.6 FL (6.5-10.1) Neutrophils (%) (Auto) 74.4 % (45.0-75.0) Lymphocytes (%) (Auto) 12.3 % (20.0-45.0) L Monocytes (%) (Auto) 12.5 % (1.0-10.0) H Eosinophils (%) (Auto) 0.1 % (0.0-3.0) Basophils (%) (Auto) 0.6 % (0.0-2.0) Erythrocyte Sedimentation Rate 41 MM/HR (0-20) H Sodium Level 138 mEQ/L (135-145) Potassium Level 3.7 mEQ/L (3.4-4.9) Chloride Level 97 mEQ/L (98-107) L Carbon Dioxide Level 32 mEQ/L (20-30) H Anion Gap 9 (5-15) Blood Urea Nitrogen 10 mg/dL (7-23) Creatinine 0.5 mg/dL (0.7-1.2) L Estimat Glomerular Filtration Rate > 60 mL/min (>60) Glucose Level 86 mg/dL (74-106) Calcium Level 9.3 mg/dL (8.6-10.2) Phosphorus Level 2.5 mg/dL (2.5-4.8) Magnesium Level 1.8 mg/dL (1.7-2.5) Total Bilirubin 0.3 mg/dL (0.0-1.2) Aspartate Amino Transf (AST/SGOT) 67 U/L (5-40) H Alanine Aminotransferase (ALT/SGPT) 61 U/L (3-41) H Alkaline Phosphatase 106 U/L (40-129) C-Reactive Protein, Quantitative 16.3 mg/dL (< 0.5) H Total Protein 6.1 g/dL (6.6-8.7) L Albumin 3.1 g/dL (3.5-5.2) L Globulin 3.0 g/dL Albumin/Globulin Ratio 1.0 (1.0-2.7) Current Medications Medications (Trade) Dose Ordered Sig/Ayo Route PRN Reason Start Time Stop Time Status Last Admin Dose Admin Acetaminophen (Tylenol) 650 mg Q4H PRN ORAL fever 07/19/16 22:15 08/18/16 22:14 Al Hydroxide/Mg Hydroxide (Mylanta II) 30 ml Q6H PRN ORAL dyspepsia 07/19/16 22:15 08/18/16 22:14 Albuterol/ Ipratropium (DuoNeb 0.5-3(2.5)mg/3ml) 3 ml Q4H PRN HHN Shortness of Breath 07/19/16 22:15 07/24/16 22:14 Benztropine Mesylate (Cogentin) 1 mg DAILY ORAL 07/23/16 09:00 08/22/16 08:59 Cefazolin Sodium/ Dextrose (Ancef/D5W 50ml) 50 ml @ 100 mls/hr Q8HR IVPB 07/21/16 14:00 07/28/16 13:59 07/24/16 06:09 Dextrose 1,000 ml @ 75 mls/hr [id number] IV 07/20/16 17:30 08/19/16 17:29 07/24/16 02:47 Dextrose STAT PRN IV Hypoglycemia 07/19/16 22:15 08/18/16 22:14 07/20/16 16:25 Heparin Sodium (Porcine) (Heparin 5000 units/ml) 5,000 units EVERY 12 HOURS SUBQ 07/20/16 09:00 08/19/16 08:59 Metoprolol Succinate (Toprol XL) 50 mg DAILY ORAL 07/20/16 09:00 08/19/16 08:59 07/22/16 08:11 Nitroglycerin (Ntg) 0.4 mg Q5M PRN SL Prn Chest Pain 07/19/16 22:15 08/18/16 22:14 Ondansetron HCl (Zofran) 4 mg Q6H PRN IVP Nausea & Vomiting 07/19/16 22:15 08/18/16 22:14 Polyethylene Glycol (Miralax) 17 gm DAILYPRN PRN ORAL Constipation 07/19/16 22:15 08/18/16 22:14 07/22/16 08:11 Promethazine HCl/ Codeine (Phenergan with Codeine) 5 ml Q4H PRN ORAL For Cough 07/21/16 14:30 08/20/16 14:29 Quetiapine Fumarate (SEROquel) 50 mg BID ORAL 07/23/16 18:00 08/22/16 17:59 07/23/16 18:39 Temazepam (Restoril) 15 mg HSPRN PRN ORAL Insomnia 07/19/16 22:15 07/26/16 22:14 DENZEL WEAVER M.D. Jul 24, 2016 09:42
[2016-07-24] MEDS: Benztropine 1mg tab ORAL SCH (11:16)
--- NOTE | 2016-07-24 12:36 | Diagnostic Imaging Report ---
Indication: TRAUMA, pain, left-sided torticollis and paraparesis Technique: Multiple views of the mandible Comparison: None Findings: Exam is very limited and essentially nondiagnostic. Per technologist, patient unable to optimally cooperate with positioning. No gross fractures demonstrated. On the available images, the relationship of the mandibular condyles to the glenoid fossae cannot be determined. Impression: Essentially nondiagnostic exam, as described. No gross acute pathology Unable to rule out temporomandibular joint dislocation, based on available images. Recent cervical spine CT suggests normal relationship of these structures, but this cannot be confirmed.
--- NOTE | 2016-07-24 12:38 | Diagnostic Imaging Report ---
Indications: TRAUMA Technique: 4 or 5 views of the cervical spine Comparison: None Findings:Exam is somewhat limited due to limited ability of patient to cooperate with positioning, per technologist. The bony alignment is grossly normal. Congenital fusion of the anterior and posterior elements of T2 and C3 is demonstrated, also described on recent CT scan. There is degenerative disc narrowing at CT, 7 and C7-T1. No prevertebral soft tissue swelling. Vertebral body heights are preserved. No gross acute fractures. No dislocations. There is stenosis of multiple neural foramina, also described on recent CT. Impression:No acute bony trauma Degenerative changes, as described above, better delineated on recent a scant-please refer to that report
--- NOTE | 2016-07-24 16:55 | Pulmonology Progress Note ---
Assessment/Plan Problems: (1) Sepsis (2) Hypothermia (3) Leukopenia (4) UTI (urinary tract infection) (5) Acute encephalopathy (6) Mental retardation (7) HTN (hypertension) (8) Diabetes Assessment/Plan continue antibiotics improving Neuro consult appreciated Jaw was apparently dislocated and was put back f/u cultures check blood sugar pt/ot Subjective ROS Limited/Unobtainable: No Interval Events: pt was found on the floor, no sign of pain Allergies: Coded Allergies: No Known Allergies (Unverified , 07/19/16) Objective Last 24 Hour Vital Signs Date Time Temp Pulse Resp B/P Pulse Ox O2 Delivery O2 Flow Rate FiO2 07/24/16 16:00 96.8 65 16 113/77 100 Room Air 07/24/16 14:00 97.8 69 16 113/79 98 07/24/16 11:22 97.7 67 15 111/61 100 Room Air 07/24/16 09:00 60 112/62 07/24/16 07:38 97.0 60 16 112/62 99 Room Air 07/24/16 07:24 60 20 Room Air 07/24/16 03:56 98.7 63 20 121/73 99 Room Air 07/24/16 00:00 98.2 72 20 119/72 92 Room Air 07/23/16 19:50 99 18 Room Air 07/23/16 19:00 97.5 100 20 119/67 94 Room Air Intake and Output 07/23/16 07/24/16 19:00 07:00 Intake Total 600 ml 650 ml Output Total 650 ml 950 ml Balance -50 ml -300 ml Intake Oral 0 ml IV Total 600 ml 650 ml Output Urine Total 650 ml 950 ml General Appearance: WD/WN HEENT: normocephalic, anicteric Respiratory/Chest: chest wall non-tender, normal breath sounds Abdomen: normal bowel sounds, soft, non tender Genitourinary: normal external genitalia Extremities: no cyanosis Skin: no rash, no ulcers Lymphatic: no neck adenopathy Laboratory Tests 07/24/16 06:15: White Blood Count 6.4, Red Blood Count 4.72, Hemoglobin 11.0L, Hematocrit 33.9L , Mean Corpuscular Volume 72L, Mean Corpuscular Hemoglobin 23.3L, Mean Corpuscular Hemoglobin Concent 32.6, Red Cell Distribution Width 14.4, Platelet Count 137L, Mean Platelet Volume 7.6, Neutrophils (%) (Auto) 74.4, Lymphocytes ( %) (Auto) 12.3L, Monocytes (%) (Auto) 12.5H, Eosinophils (%) (Auto) 0.1, Basophils (%) (Auto) 0.6, Erythrocyte Sedimentation Rate 41H, Sodium Level 138, Potassium Level 3.7, Chloride Level 97L, Carbon Dioxide Level 32H, Anion Gap 9, Blood Urea Nitrogen 10, Creatinine 0.5L, Estimat Glomerular Filtration Rate > 60 , Glucose Level 86, Calcium Level 9.3, Phosphorus Level 2.5, Magnesium Level 1.8 , Total Bilirubin 0.3, Aspartate Amino Transf (AST/SGOT) 67H, Alanine Aminotransferase (ALT/SGPT) 61H, Alkaline Phosphatase 106, C-Reactive Protein, Quantitative 16.3H, Total Protein 6.1L, Albumin 3.1L, Globulin 3.0, Albumin/ Globulin Ratio 1.0 Current Medications Medications (Trade) Dose Ordered Sig/Ayo Route PRN Reason Start Time Stop Time Status Last Admin Dose Admin Acetaminophen (Tylenol) 650 mg Q4H PRN ORAL fever 07/19/16 22:15 08/18/16 22:14 Al Hydroxide/Mg Hydroxide (Mylanta II) 30 ml Q6H PRN ORAL dyspepsia 07/19/16 22:15 08/18/16 22:14 Albuterol/ Ipratropium (DuoNeb 0.5-3(2.5)mg/3ml) 3 ml Q4H PRN HHN Shortness of Breath 07/19/16 22:15 07/24/16 22:14 Benztropine Mesylate (Cogentin) 1 mg DAILY ORAL 07/23/16 09:00 08/22/16 08:59 07/24/16 11:16 Cefazolin Sodium/ Dextrose (Ancef/D5W 50ml) 50 ml @ 100 mls/hr Q8HR IVPB 07/21/16 14:00 07/28/16 13:59 07/24/16 14:19 Dextrose 1,000 ml @ 75 mls/hr [id number] IV 07/20/16 17:30 08/19/16 17:29 07/24/16 02:47 Dextrose STAT PRN IV Hypoglycemia 07/19/16 22:15 08/18/16 22:14 07/20/16 16:25 Heparin Sodium (Porcine) (Heparin 5000 units/ml) 5,000 units EVERY 12 HOURS SUBQ 07/20/16 09:00 08/19/16 08:59 Metoprolol Succinate (Toprol XL) 50 mg DAILY ORAL 07/20/16 09:00 08/19/16 08:59 07/22/16 08:11 Nitroglycerin (Ntg) 0.4 mg Q5M PRN SL Prn Chest Pain 07/19/16 22:15 08/18/16 22:14 Ondansetron HCl (Zofran) 4 mg Q6H PRN IVP Nausea & Vomiting 07/19/16 22:15 08/18/16 22:14 Polyethylene Glycol (Miralax) 17 gm DAILYPRN PRN ORAL Constipation 07/19/16 22:15 08/18/16 22:14 07/22/16 08:11 Promethazine HCl/ Codeine (Phenergan with Codeine) 5 ml Q4H PRN ORAL For Cough 07/21/16 14:30 08/20/16 14:29 Quetiapine Fumarate (SEROquel) 50 mg BID ORAL 07/23/16 18:00 08/22/16 17:59 07/24/16 11:17 Temazepam (Restoril) 15 mg HSPRN PRN ORAL Insomnia 07/19/16 22:15 07/26/16 22:14 REBECCA SCHNEIDER Jul 24, 2016 16:55
--- NOTE | 2016-07-24 17:05 | Neurology Progress Note ---
Interim History Interim History ROS Limited/Unobtainable: Yes Complaints: mute Events: able to eat, fell down no loc Objective Physical Exam Last Vital Signs Date Time Temp Pulse Resp B/P Pulse Ox O2 Delivery O2 Flow Rate FiO2 07/24/16 16:00 96.8 65 16 113/77 100 Room Air Laboratory Tests Test 07/24/16 06:15 White Blood Count 6.4 K/UL (4.8-10.8) Red Blood Count 4.72 M/UL (4.70-6.10) Hemoglobin 11.0 G/DL (14.2-18.0) L Hematocrit 33.9 % (42.0-52.0) L Mean Corpuscular Volume 72 FL (80-99) L Mean Corpuscular Hemoglobin 23.3 PG (27.0-31.0) L Mean Corpuscular Hemoglobin Concent 32.6 G/DL (32.0-36.0) Red Cell Distribution Width 14.4 % (11.6-14.8) Platelet Count 137 K/UL (150-450) L Mean Platelet Volume 7.6 FL (6.5-10.1) Neutrophils (%) (Auto) 74.4 % (45.0-75.0) Lymphocytes (%) (Auto) 12.3 % (20.0-45.0) L Monocytes (%) (Auto) 12.5 % (1.0-10.0) H Eosinophils (%) (Auto) 0.1 % (0.0-3.0) Basophils (%) (Auto) 0.6 % (0.0-2.0) Erythrocyte Sedimentation Rate 41 MM/HR (0-20) H Sodium Level 138 mEQ/L (135-145) Potassium Level 3.7 mEQ/L (3.4-4.9) Chloride Level 97 mEQ/L (98-107) L Carbon Dioxide Level 32 mEQ/L (20-30) H Anion Gap 9 (5-15) Blood Urea Nitrogen 10 mg/dL (7-23) Creatinine 0.5 mg/dL (0.7-1.2) L Estimat Glomerular Filtration Rate > 60 mL/min (>60) Glucose Level 86 mg/dL (74-106) Calcium Level 9.3 mg/dL (8.6-10.2) Phosphorus Level 2.5 mg/dL (2.5-4.8) Magnesium Level 1.8 mg/dL (1.7-2.5) Total Bilirubin 0.3 mg/dL (0.0-1.2) Aspartate Amino Transf (AST/SGOT) 67 U/L (5-40) H Alanine Aminotransferase (ALT/SGPT) 61 U/L (3-41) H Alkaline Phosphatase 106 U/L (40-129) C-Reactive Protein, Quantitative 16.3 mg/dL (< 0.5) H Total Protein 6.1 g/dL (6.6-8.7) L Albumin 3.1 g/dL (3.5-5.2) L Globulin 3.0 g/dL Albumin/Globulin Ratio 1.0 (1.0-2.7) General: well developed, no acute distress Head: normocophalic, atraumatic Neck: other - rigid Neurologic Exam Mental Status: awake, other Speech: other - mute Language: other Cranial Nerve II: no papilledema Cranial Nerves III, IV, : pupils Cranial Nerve V: normal facial sensations, masseters function normal Cranial Nerve VII: no facial asymmetry Cranial Nerve VIII: no nystagmus Cranial Nerve IX: normal palate elevation, gag response Cranial Nerve XII: tongue midline Motor System: no involuntary movement, other - moving against gravity all limbs Sensory: normal pinprick Coordination: other Deep Tendon Reflexes: 0 ankle (L), 0 ankle (R), 0 bicep (L), 0 bicep (R), 0 brachioradialis (L), 0 brachioradialis (R), 0 knee (L), 0 knee (R), 0 tricep (L) , 0 tricep (R) Reflexes: mute plantar (L), mute plantar (R) Impression/Recommendations Problems: (1) r/o leukemoid reaction vs. leukemia (2) Elevated transaminase level (3) Pancytopenia (4) Hypothermia Status: unchanged Recommendations #[id number] CT brai no trauma CT c spine no fx no cord compression pt/ot SAVANNAH LEMUS Jul 24, 2016 17:05
[2016-07-24 17:32] LABS: CHOLESTEROL/HDL RATIO 2.2 (3.3-4.4)
--- NOTE | 2016-07-24 22:38 | Progress Note ---
DATE: 07/24/2016 SUBJECTIVE: The patient continues to be stable at baseline. No behavior issues. No anxiety or agitation. No psychomotor retardation, agitation, or compliance. He is confused and semi engaged. MENTAL STATUS EXAMINATION: The patient is nonverbal. Severe cognitive impairment due to developmental disability. Insight and judgement is nonexistent. ASSESSMENT: Stable. PLAN: 1. The patient will be continued on Seroquel. 2. We will continue to follow and readjust the medications. Levy Powell M.D. DR: MARY JOB#: [id number] CC:
[2016-07-25] VITALS: BP 104/58
[2016-07-25 04:00] VITALS: BP 94/58
[2016-07-25 08:00] VITALS: BP 90/53
[2016-07-25] MEDS: Benztropine 1mg tab ORAL SCH (08:56)
[2016-07-25] MEDS: Heparin 5000 units/ml inj SUBQ SCH ×2 (09:01→21:00)
--- NOTE | 2016-07-25 09:54 | Infectious Diseases Prog Note ---
Assessment/Plan Assessment/Plan A: The patient is a 50-year-old male with Sepsis, SP SP hypothermia UTI EColi Leukopenia / pancytopenia r/o HIV, malignancy ? 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 Psych disorder HTN DM NKDA Full Code PLAN: on IV Ancef d# / , upon DC will change to po Keflex to complete the course ( 07/21 SP cefepime. d # 2 ) check HIV, LDH Monitor CBC, temperatures, re-culture if acute change Monitor BMP. Recommend hematology/oncology evaluation Subjective Allergies: Coded Allergies: No Known Allergies (Unverified , 07/19/16) Subjective remains afebrile. no new complaint Objective Vital Signs Last 24 Hour Vital Signs Date Time Temp Pulse Resp B/P Pulse Ox O2 Delivery O2 Flow Rate FiO2 07/25/16 09:00 62 90/53 07/25/16 08:00 93.9 62 17 90/53 97 Room Air 21 07/25/16 07:25 96 20 Room Air 21 07/25/16 04:00 97.0 75 20 94/58 98 Room Air 07/25/16 00:00 99.0 93 20 104/58 95 Room Air 07/24/16 20:00 98.2 97 19 105/65 99 Room Air 07/24/16 19:03 99 20 Room Air 21 07/24/16 16:00 96.8 65 16 113/77 100 Room Air 07/24/16 14:00 97.8 69 16 113/79 98 07/24/16 11:22 97.7 67 15 111/61 100 Room Air Height (Feet): 6 Height (Inches): 0.00 Weight (Pounds): 175 General Appearance: no acute distress, other - thin Respiratory/Chest: no respiratory distress Cardiovascular: normal rate, regular rhythm Abdomen: normal bowel sounds, soft, non tender, non distended Current Medications Medications (Trade) Dose Ordered Sig/Ayo Route PRN Reason Start Time Stop Time Status Last Admin Dose Admin Acetaminophen (Tylenol) 650 mg Q4H PRN ORAL fever 07/19/16 22:15 1/24/17 22:14 Al Hydroxide/Mg Hydroxide (Mylanta II) 30 ml Q6H PRN ORAL dyspepsia 07/19/16 22:15 08/18/16 22:14 Benztropine Mesylate (Cogentin) 1 mg DAILY ORAL 07/23/16 09:00 08/22/16 08:59 07/25/16 08:56 Cefazolin Sodium/ Dextrose (Ancef/D5W 50ml) 50 ml @ 100 mls/hr Q8HR IVPB 07/21/16 14:00 07/28/16 13:59 07/25/16 05:50 Dextrose 1,000 ml @ 75 mls/hr [id number] IV 07/20/16 17:30 08/19/16 17:29 07/25/16 04:32 Dextrose STAT PRN IV Hypoglycemia 07/19/16 22:15 08/18/16 22:14 07/20/16 16:25 Heparin Sodium (Porcine) (Heparin 5000 units/ml) 5,000 units EVERY 12 HOURS SUBQ 07/20/16 09:00 08/19/16 08:59 07/25/16 09:01 Metoprolol Succinate (Toprol XL) 50 mg DAILY ORAL 07/20/16 09:00 08/19/16 08:59 07/22/16 08:11 Nitroglycerin (Ntg) 0.4 mg Q5M PRN SL Prn Chest Pain 07/19/16 22:15 08/18/16 22:14 Ondansetron HCl (Zofran) 4 mg Q6H PRN IVP Nausea & Vomiting 07/19/16 22:15 08/18/16 22:14 Polyethylene Glycol (Miralax) 17 gm DAILYPRN PRN ORAL Constipation 07/19/16 22:15 08/18/16 22:14 07/22/16 08:11 Promethazine HCl/ Codeine (Phenergan with Codeine) 5 ml Q4H PRN ORAL For Cough 07/21/16 14:30 08/20/16 14:29 Quetiapine Fumarate (SEROquel) 50 mg BID ORAL 07/23/16 18:00 08/22/16 17:59 07/24/16 17:50 Temazepam (Restoril) 15 mg HSPRN PRN ORAL Insomnia 07/19/16 22:15 07/26/16 22:14 KAMLA BULLARD Jul 25, 2016 09:54
[2016-07-25 12:00] VITALS: BP 105/61
--- NOTE | 2016-07-25 14:36 | Diagnostic Imaging Report ---
Indications: Altered consciousness Technique: Continuous helical CT imaging of the brain was performed with automatic exposure control on a Siemens sensation [address] scanner. Axial and coronal images were reconstructed at 5 mm slice thickness and interval. CTDI volume(s): 70 mGy Total DLP: Routine 46 mGy-cm Findings: Comparison: None. Ventricles, cisterns, sulci are mildly, diffusely prominent. No evidence of mass or hemorrhage, other attenuation abnormality, mass effect, midline shift, hydrocephalus or increased intracranial pressure. Bone window images demonstrate mild diffuse calvarial thickening, are otherwise unremarkable. Visualized paranasal sinuses and mastoid air cells are clear. IMPRESSION: No evidence of acute intracranial pathology Mild atrophy Diffuse hyperostosis may be developmental, metabolic, or represent chronic Dilantin effect The CT scanner at [facility] is accredited by the [employer] and the scans are performed using protocols designed to limit radiation exposure to as low as reasonably achievable to attain images of sufficient resolution adequate for diagnostic evaluation.
--- NOTE | 2016-07-25 14:38 | Diagnostic Imaging Report ---
Indications: Head trauma, fell today Technique: Spiral acquisitions obtained through the brain. Angled axial and coronal 5 x 5 mm slices were reconstructed. Total dose length product 1548 mGycm. CTDI vol(s) 70 mGy Comparison: 07/22/2016 Findings: Again demonstrated is mild prominence to the ventricles and to lesser extent extra-axial CSF spaces. Again demonstrated is diffuse increased attenuation of the scalp. Acute intracranial hemorrhage or edema. No mass effect or midline shift. Normal hua-white differentiation. Visualized orbits and sinuses are unremarkable. Again demonstrated is diffuse calvarial hyperostosis. There is fairly extensive ossification of the falx. A mucous retention cyst or polyp is seen in the left maxillary sinus. There is no significant interim change Of note, recent radiograph of the mandible was performed to look for temporomandibular joint dislocation, was nondiagnostic for such. On the current exam, the temporomandibular joints are included anterior normally situated. Impression: Negative for acute intracranial bleed or mass effect Diffuse calvarial hyperostosis, also previously reported Mild central volume loss, out of proportion to patient's age Increased attenuation of the scalp, consistent with anasarca demonstrated on prior cervical spine CT Note that a recent plain radiograph of the mandible was performed to rule out temporomandibular joint dislocation, but was nondiagnostic. The current study demonstrates the mandibular heads normally situated within the glenoid fossae, and no evidence of dislocation The CT scanner at [facility] is accredited by the [employer] and the scans are performed using protocols designed to limit radiation exposure to as low as reasonably achievable to attain images of sufficient resolution adequate for diagnostic evaluation.
--- NOTE | 2016-07-25 15:48 | Internal Med Progress Note ---
Subjective Date of Service: Jul 25, 2016 Physician Name OrlandoHerbie anand Attending Physician Iman Cunha Current Medications Medications (Trade) Dose Ordered Sig/Ayo Route PRN Reason Start Time Stop Time Status Last Admin Dose Admin Acetaminophen (Tylenol) 650 mg Q4H PRN ORAL fever 07/19/16 22:15 08/18/16 22:14 Al Hydroxide/Mg Hydroxide (Mylanta II) 30 ml Q6H PRN ORAL dyspepsia 07/19/16 22:15 08/18/16 22:14 Benztropine Mesylate (Cogentin) 1 mg DAILY ORAL 07/23/16 09:00 08/22/16 08:59 07/25/16 08:56 Cefazolin Sodium/ Dextrose (Ancef/D5W 50ml) 50 ml @ 100 mls/hr Q8HR IVPB 07/21/16 14:00 07/28/16 13:59 07/25/16 14:38 Dextrose 1,000 ml @ 75 mls/hr [id number] IV 07/20/16 17:30 08/19/16 17:29 07/25/16 04:32 Dextrose STAT PRN IV Hypoglycemia 07/19/16 22:15 08/18/16 22:14 07/20/16 16:25 Heparin Sodium (Porcine) (Heparin 5000 units/ml) 5,000 units EVERY 12 HOURS SUBQ 07/20/16 09:00 08/19/16 08:59 07/25/16 09:01 Metoprolol Succinate (Toprol XL) 50 mg DAILY ORAL 07/20/16 09:00 08/19/16 08:59 07/22/16 08:11 Nitroglycerin (Ntg) 0.4 mg Q5M PRN SL Prn Chest Pain 07/19/16 22:15 08/18/16 22:14 Ondansetron HCl (Zofran) 4 mg Q6H PRN IVP Nausea & Vomiting 07/19/16 22:15 08/18/16 22:14 Polyethylene Glycol (Miralax) 17 gm DAILYPRN PRN ORAL Constipation 07/19/16 22:15 08/18/16 22:14 07/22/16 08:11 Promethazine HCl/ Codeine (Phenergan with Codeine) 5 ml Q4H PRN ORAL For Cough 07/21/16 14:30 08/20/16 14:29 Quetiapine Fumarate (SEROquel) 50 mg BID ORAL 07/23/16 18:00 08/22/16 17:59 07/25/16 10:31 Temazepam (Restoril) 15 mg HSPRN PRN ORAL Insomnia 07/19/16 22:15 07/26/16 22:14 Allergies: Coded Allergies: No Known Allergies (Unverified , 07/19/16) ROS Limited/Unobtainable: Yes Subjective Cover for Int Med-Dr Cunha Objective Last Vital Signs Date Time Temp Pulse Resp B/P Pulse Ox O2 Delivery O2 Flow Rate FiO2 07/25/16 09:00 62 90/53 07/25/16 08:00 93.9 17 97 Room Air 21 General Appearance: WD/WN, no apparent distress, alert EENT: PERRL/EOMI, normal ENT inspection, TMs normal Neck: non-tender, normal alignment, supple Cardiovascular: normal peripheral pulses, normal rate, regular rhythm, no gallop/murmur, no JVD Respiratory/Chest: chest wall non-tender, lungs clear, normal breath sounds, no respiratory distress, no accessory muscle use Abdomen: normal bowel sounds, non tender, soft, no organomegaly, no mass Extremities: normal range of motion, non-tender Neurologic: band top maker II-XII grossly normal, no motor/sensory deficits Skin: normal pigmentation, warm/dry Intake and Output 07/24/16 07/25/16 19:00 07:00 Intake Total 975 ml 655 ml Output Total 500 ml 1000 ml Balance 475 ml -345 ml Intake Oral 400 ml 380 ml IV Total 575 ml 275 ml Output Urine Total 500 ml 1000 ml Assessment/Plan Problem List: (1) Psychosis Assessment & Plan: See psych note. Cont seroquel (2) UTI (urinary tract infection) Assessment & Plan: E. Coli. Cont ancef per ID (3) Acute encephalopathy (4) Sepsis Assessment & Plan: See ID note. Cont ancef (5) HTN (hypertension) Assessment & Plan: Cont toprolol (6) Diabetes (7) Torticollis, acute Status: not improved HERBIE ORLANDO Jul 25, 2016 15:48
[2016-07-25 16:00] VITALS: BP 118/52
[2016-07-25 20:00] VITALS: BP 107/67
[2016-07-26] VITALS: BP 96/60
--- NOTE | 2016-07-26 02:58 | Geriatric Medicine Prog Note ---
S-This progress note is for Dr. Сергей Jane.the patient is comfortalr today O-VS stable RESP:Nhung,[facility]-Regular INV=glucos 170 mg% ASSESSMENT:diabetes Mellitud in fair control PLANS:Levemir Insu;in 10u sc q12hrs with sliding scale Novolog QId qac an dHS. Mauricio Anderson M.D. DR: JOANIE JOB#: [id number] CC: NICHOLAS
[2016-07-26 04:00] VITALS: BP 112/63
[2016-07-26 07:54] LABS: BASOPHILS % (AUTO) 1.9 % (0.0-2.0); EOSINOPHILS % (AUTO) 1.1 % (0.0-3.0); LYMPHOCYTES % (AUTO) 18.9 % (20.0-45.0); MEAN CORPUSCULAR HEMOGLOBIN 22.9 PG (27.0-31.0); MEAN CORPUSCULAR HGB CONC 31.1 G/DL (32.0-36.0); MEAN CORPUSCULAR VOLUME 73 FL (80-99); MEAN PLATELET VOLUME 6.8 FL (6.5-10.1); MONOCYTES % (AUTO) 8.5 % (1.0-10.0); NEUTROPHILS % (AUTO) 69.6 % (45.0-75.0); PLATELET COUNT 204 K/UL (150-450); RED BLOOD COUNT 4.62 M/UL (4.70-6.10); RED CELL DISTRIBUTION WIDTH 14.1 % (11.6-14.8); WHITE BLOOD COUNT 5.3 K/UL (4.8-10.8)
[2016-07-26 08:00] VITALS: BP 98/68
--- NOTE | 2016-07-26 08:22 | Infectious Diseases Prog Note ---
Assessment/Plan Assessment/Plan A: The patient is a 50-year-old male with Sepsis, SP SP hypothermia UTI EColi Leukopenia / pancytopenia r/o HIV, malignancy ? 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 Psych disorder HTN DM NKDA Full Code PLAN: on IV Ancef d# / , upon DC will change to po Keflex to complete the course ( 07/21 SP cefepime. d # 2 ) f/u HIV, LDH Monitor CBC, temperatures, re-culture if acute change Monitor BMP. Recommend hematology/oncology evaluation Subjective Allergies: Coded Allergies: No Known Allergies (Unverified , 07/19/16) Subjective remains afebrile. comfortable Objective Vital Signs Last 24 Hour Vital Signs Date Time Temp Pulse Resp B/P Pulse Ox O2 Delivery O2 Flow Rate FiO2 07/26/16 04:00 97.2 57 20 112/63 95 Room Air 07/26/16 00:00 97.9 65 20 96/60 100 Room Air 07/25/16 20:00 97.7 86 20 107/67 99 Room Air 07/25/16 19:14 85 20 Room Air 21 07/25/16 16:00 97.8 80 18 118/52 97 Room Air 21 07/25/16 12:00 96.7 76 18 105/61 97 Room Air 21 07/25/16 09:00 62 90/53 Height (Feet): 6 Height (Inches): 0.00 Weight (Pounds): 175 General Appearance: no acute distress Respiratory/Chest: no respiratory distress Cardiovascular: normal rate, regular rhythm Abdomen: normal bowel sounds, soft, non tender, non distended Laboratory Tests Test 07/26/16 07:10 White Blood Count 5.3 K/UL (4.8-10.8) Red Blood Count 4.62 M/UL (4.70-6.10) L Hemoglobin 10.6 G/DL (14.2-18.0) L Hematocrit 34.0 % (42.0-52.0) L Mean Corpuscular Volume 73 FL (80-99) L Mean Corpuscular Hemoglobin 22.9 PG (27.0-31.0) L Mean Corpuscular Hemoglobin Concent 31.1 G/DL (32.0-36.0) L Red Cell Distribution Width 14.1 % (11.6-14.8) Platelet Count 204 K/UL (150-450) Mean Platelet Volume 6.8 FL (6.5-10.1) Neutrophils (%) (Auto) 69.6 % (45.0-75.0) Lymphocytes (%) (Auto) 18.9 % (20.0-45.0) L Monocytes (%) (Auto) 8.5 % (1.0-10.0) Eosinophils (%) (Auto) 1.1 % (0.0-3.0) Basophils (%) (Auto) 1.9 % (0.0-2.0) Sodium Level Pending Potassium Level Pending Chloride Level Pending Carbon Dioxide Level Pending Blood Urea Nitrogen Pending Creatinine Pending Estimat Glomerular Filtration Rate Pending Glucose Level Pending Calcium Level Pending Lactate Dehydrogenase Pending HIV (1&2) Antibody Rapid Pending Current Medications Medications (Trade) Dose Ordered Sig/Ayo Route PRN Reason Start Time Stop Time Status Last Admin Dose Admin Acetaminophen (Tylenol) 650 mg Q4H PRN ORAL fever 07/19/16 22:15 08/18/16 22:14 Al Hydroxide/Mg Hydroxide (Mylanta II) 30 ml Q6H PRN ORAL dyspepsia 07/19/16 22:15 08/18/16 22:14 Benztropine Mesylate (Cogentin) 1 mg DAILY ORAL 07/23/16 09:00 08/22/16 08:59 07/25/16 08:56 Cefazolin Sodium/ Dextrose (Ancef/D5W 50ml) 50 ml @ 100 mls/hr Q8HR IVPB 07/21/16 14:00 07/28/16 13:59 07/26/16 05:46 Dextrose 1,000 ml @ 75 mls/hr [id number] IV 07/20/16 17:30 08/19/16 17:29 07/25/16 17:39 Dextrose STAT PRN IV Hypoglycemia 07/19/16 22:15 08/18/16 22:14 07/20/16 16:25 Heparin Sodium (Porcine) (Heparin 5000 units/ml) 5,000 units EVERY 12 HOURS SUBQ 12/26/16 09:00 08/19/16 08:59 07/25/16 09:01 Metoprolol Succinate (Toprol XL) 50 mg DAILY ORAL 07/20/16 09:00 08/19/16 08:59 07/22/16 08:11 Nitroglycerin (Ntg) 0.4 mg Q5M PRN SL Prn Chest Pain 07/19/16 22:15 08/18/16 22:14 Ondansetron HCl (Zofran) 4 mg Q6H PRN IVP Nausea & Vomiting 07/19/16 22:15 08/18/16 22:14 Polyethylene Glycol (Miralax) 17 gm DAILYPRN PRN ORAL Constipation 07/19/16 22:15 08/18/16 22:14 07/22/16 08:11 Promethazine HCl/ Codeine (Phenergan with Codeine) 5 ml Q4H PRN ORAL For Cough 07/21/16 14:30 08/20/16 14:29 Quetiapine Fumarate (SEROquel) 50 mg BID ORAL 07/23/16 18:00 08/22/16 17:59 07/25/16 17:39 Temazepam (Restoril) 15 mg HSPRN PRN ORAL Insomnia 07/19/16 22:15 07/26/16 22:14 KAMLA BULLARD Jul 26, 2016 08:22
[2016-07-26 08:47] LABS: ANION GAP 10 (5-15); CALCIUM 8.8 mg/dL (8.6-10.2); CARBON DIOXIDE 32 mEQ/L (20-30); CHLORIDE 101 mEQ/L (98-107); CREATININE 0.5 mg/dL (0.7-1.2); GLOMERULAR FILTRATION RATE > 60 mL/min (>60); HEMOLYSIS 6; POTASSIUM 3.9 mEQ/L (3.4-4.9); SODIUM 143 mEQ/L (135-145)
[2016-07-26] MEDS: Heparin 5000 units/ml inj SUBQ SCH ×2 (09:22→20:59)
[2016-07-26] MEDS: Benztropine 1mg tab ORAL SCH (09:23)
--- NOTE | 2016-07-26 09:58 | Geriatric Medicine Prog Note ---
DATE: 07/25/2016 SUBJECTIVE: The patient is no longer_ hypoglycemic. OBJECTIVE: VITAL SIGNS: Blood pressure 130_/61, pulse 86, respiratory rate 18, temperature 96.7 degrees. RESPIRATORY: Clear. CVS: Regular rhythm. INV:glucos 280 mh% ASSESSMENT:Diabetes Mellitud in fair control PLQN:Contine evemir 1u sc Q12hrs wirh sliding scalenovolog QID ac and HS. Mauricio Anderson M.D. DR: JOANIE JOB#: [id number] CC: NICHOLAS
[2016-07-26 12:00] VITALS: BP 104/63
[2016-07-26 16:00] VITALS: BP 109/64
--- NOTE | 2016-07-26 17:13 | Internal Med Progress Note ---
Subjective Date of Service: Jul 26, 2016 Physician Name OrlandoEdil Attending Physician Iman Cunha Current Medications Medications (Trade) Dose Ordered Sig/Aoy Route PRN Reason Start Time Stop Time Status Last Admin Dose Admin Acetaminophen (Tylenol) 650 mg Q4H PRN ORAL fever 07/19/16 22:15 08/18/16 22:14 Al Hydroxide/Mg Hydroxide (Mylanta II) 30 ml Q6H PRN ORAL dyspepsia 07/19/16 22:15 08/18/16 22:14 Benztropine Mesylate (Cogentin) 1 mg DAILY ORAL 07/23/16 09:00 08/22/16 08:59 07/26/16 09:23 Cefazolin Sodium/ Dextrose (Ancef/D5W 50ml) 50 ml @ 100 mls/hr Q8HR IVPB 07/21/16 14:00 07/28/16 13:59 07/26/16 14:28 Dextrose 1,000 ml @ 75 mls/hr [id number] IV 07/20/16 17:30 08/19/16 17:29 07/25/16 17:39 Dextrose STAT PRN IV Hypoglycemia 07/19/16 22:15 08/18/16 22:14 07/20/16 16:25 Heparin Sodium (Porcine) (Heparin 5000 units/ml) 5,000 units EVERY 12 HOURS SUBQ 07/20/16 09:00 08/19/16 08:59 07/26/16 09:22 Metoprolol Succinate (Toprol XL) 50 mg DAILY ORAL 07/20/16 09:00 08/19/16 08:59 07/22/16 08:11 Nitroglycerin (Ntg) 0.4 mg Q5M PRN SL Prn Chest Pain 07/19/16 22:15 08/18/16 22:14 Ondansetron HCl (Zofran) 4 mg Q6H PRN IVP Nausea & Vomiting 07/19/16 22:15 08/18/16 22:14 Polyethylene Glycol (Miralax) 17 gm DAILYPRN PRN ORAL Constipation 07/19/16 22:15 08/18/16 22:14 07/22/16 08:11 Promethazine HCl/ Codeine (Phenergan with Codeine) 5 ml Q4H PRN ORAL For Cough 07/21/16 14:30 08/20/16 14:29 Quetiapine Fumarate (SEROquel) 50 mg BID ORAL 07/23/16 18:00 08/22/16 17:59 07/26/16 17:02 Temazepam (Restoril) 15 mg HSPRN PRN ORAL Insomnia 07/19/16 22:15 07/26/16 22:14 Allergies: Coded Allergies: No Known Allergies (Unverified , 07/19/16) ROS Limited/Unobtainable: Yes Subjective Cover for Int Kleber-Dr Cunha Objective Last Vital Signs Date Time Temp Pulse Resp B/P Pulse Ox O2 Delivery O2 Flow Rate FiO2 07/26/16 12:00 97.9 64 18 104/63 100 Room Air 21 Laboratory Tests Test 07/26/16 07:10 White Blood Count 5.3 K/UL (4.8-10.8) Red Blood Count 4.62 M/UL (4.70-6.10) L Hemoglobin 10.6 G/DL (14.2-18.0) L Hematocrit 34.0 % (42.0-52.0) L Mean Corpuscular Volume 73 FL (80-99) L Mean Corpuscular Hemoglobin 22.9 PG (27.0-31.0) L Mean Corpuscular Hemoglobin Concent 31.1 G/DL (32.0-36.0) L Red Cell Distribution Width 14.1 % (11.6-14.8) Platelet Count 204 K/UL (150-450) Mean Platelet Volume 6.8 FL (6.5-10.1) Neutrophils (%) (Auto) 69.6 % (45.0-75.0) Lymphocytes (%) (Auto) 18.9 % (20.0-45.0) L Monocytes (%) (Auto) 8.5 % (1.0-10.0) Eosinophils (%) (Auto) 1.1 % (0.0-3.0) Basophils (%) (Auto) 1.9 % (0.0-2.0) Sodium Level 143 mEQ/L (135-145) Potassium Level 3.9 mEQ/L (3.4-4.9) Chloride Level 101 mEQ/L (98-107) Carbon Dioxide Level 32 mEQ/L (20-30) H Anion Gap 10 (5-15) Blood Urea Nitrogen 10 mg/dL (7-23) Creatinine 0.5 mg/dL (0.7-1.2) L Estimat Glomerular Filtration Rate > 60 mL/min (>60) Glucose Level 86 mg/dL (74-106) Calcium Level 8.8 mg/dL (8.6-10.2) Lactate Dehydrogenase 190 U/L (135-230) HIV (1&2) Antibody Rapid Negative (NEGATIVE) Intake and Output 07/25/16 07/26/16 19:00 07:00 Intake Total 1507 ml 700 ml Balance 1507 ml 700 ml Intake Oral 600 ml IV Total 907 ml 700 ml # Voids 4 Objective General Appearance: WD/WN, no apparent distress, alert EENT: PERRL/EOMI, normal ENT inspection, TMs normal Neck: non-tender, normal alignment, supple Cardiovascular: normal peripheral pulses, normal rate, regular rhythm, no gallop/murmur, no JVD Respiratory/Chest: chest wall non-tender, lungs clear, normal breath sounds, no respiratory distress, no accessory muscle use Abdomen: normal bowel sounds, non tender, soft, no organomegaly, no mass Extremities: normal range of motion, non-tender 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 Cont seroquel (2) UTI (urinary tract infection) Assessment & Plan: E. Coli. Cont ancef per ID (3) Acute encephalopathy (4) Sepsis Assessment & Plan: See ID note. Cont ancef (5) HTN (hypertension) Assessment & Plan: Cont toprolol (6) Diabetes (7) Torticollis, acute Status: progressing WILLOWEDIL Jul 26, 2016 17:13
[2016-07-26 20:00] VITALS: BP 106/60
[2016-07-27] VITALS (7 sets, daily range): BP systolic 100–161; BP diastolic 62–86
[2016-07-27] MEDS ORDERED: NovoLOG Insulin Flexpen SUBQ SCH (06:30)
[2016-07-27 06:34] LABS: BASOPHILS % (AUTO) 1.4 % (0.0-2.0); EOSINOPHILS % (AUTO) 0.8 % (0.0-3.0); LYMPHOCYTES % (AUTO) 20.3 % (20.0-45.0); MEAN CORPUSCULAR HEMOGLOBIN 22.8 PG (27.0-31.0); MEAN CORPUSCULAR HGB CONC 30.7 G/DL (32.0-36.0); MEAN CORPUSCULAR VOLUME 74 FL (80-99); MEAN PLATELET VOLUME 6.2 FL (6.5-10.1); MONOCYTES % (AUTO) 8.3 % (1.0-10.0); NEUTROPHILS % (AUTO) 69.2 % (45.0-75.0); PLATELET COUNT 243 K/UL (150-450); RED BLOOD COUNT 4.56 M/UL (4.70-6.10); RED CELL DISTRIBUTION WIDTH 13.7 % (11.6-14.8); WHITE BLOOD COUNT 5.4 K/UL (4.8-10.8)
[2016-07-27 06:53] LABS: ANION GAP 9 (5-15); CALCIUM 8.9 mg/dL (8.6-10.2); CARBON DIOXIDE 32 mEQ/L (20-30); CHLORIDE 98 mEQ/L (98-107); CREATININE 0.4 mg/dL (0.7-1.2); GLOMERULAR FILTRATION RATE > 60 mL/min (>60); HEMOLYSIS 1; POTASSIUM 3.9 mEQ/L (3.4-4.9); SODIUM 139 mEQ/L (135-145)
[2016-07-27] MEDS ORDERED: LORazepam Inj 2mg/ml 1ml IV PRN ×2 (08:30→11:30)
--- NOTE | 2016-07-27 08:45 | Infectious Diseases Prog Note ---
Assessment/Plan Assessment/Plan A: The patient is a 50-year-old male with Sepsis, SP SP hypothermia UTI EColi Leukopenia / pancytopenia r/o malignancy ? 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 Psych disorder HTN DM NKDA Full Code PLAN: on IV Ancef d# / , upon DC will change to po Keflex to complete the course ( 07/21 SP cefepime. d # 2 ) Monitor CBC, temperatures, re-culture if acute change Monitor BMP. Recommend hematology/oncology evaluation Subjective Allergies: Coded Allergies: No Known Allergies (Unverified , 07/19/16) Subjective remains afebrile. comfortable Objective Vital Signs Last 24 Hour Vital Signs Date Time Temp Pulse Resp B/P Pulse Ox O2 Delivery O2 Flow Rate FiO2 07/27/16 08:08 98.1 109 20 161/86 99 Simple Mask 07/27/16 04:00 98.2 69 19 117/67 98 Room Air 07/27/16 00:00 97.3 69 19 100/62 99 Room Air 07/26/16 20:00 97.3 64 20 106/60 100 Room Air 07/26/16 19:11 65 16 Room Air 21 07/26/16 16:00 97.2 65 18 109/64 97 Room Air 07/26/16 12:00 97.9 64 18 104/63 100 Room Air 21 07/26/16 09:00 68 112/63 Height (Feet): 6 Height (Inches): 0.00 Weight (Pounds): 175 General Appearance: no acute distress Respiratory/Chest: no respiratory distress Cardiovascular: normal rate, regular rhythm Abdomen: normal bowel sounds, soft, non tender, non distended Laboratory Tests Test 07/27/16 05:00 White Blood Count 5.4 K/UL (4.8-10.8) Red Blood Count 4.56 M/UL (4.70-6.10) L Hemoglobin 10.4 G/DL (14.2-18.0) L Hematocrit 33.9 % (42.0-52.0) L Mean Corpuscular Volume 74 FL (80-99) L Mean Corpuscular Hemoglobin 22.8 PG (27.0-31.0) L Mean Corpuscular Hemoglobin Concent 30.7 G/DL (32.0-36.0) L Red Cell Distribution Width 13.7 % (11.6-14.8) Platelet Count 243 K/UL (150-450) Mean Platelet Volume 6.2 FL (6.5-10.1) L Neutrophils (%) (Auto) 69.2 % (45.0-75.0) Lymphocytes (%) (Auto) 20.3 % (20.0-45.0) Monocytes (%) (Auto) 8.3 % (1.0-10.0) Eosinophils (%) (Auto) 0.8 % (0.0-3.0) Basophils (%) (Auto) 1.4 % (0.0-2.0) Sodium Level 139 mEQ/L (135-145) Potassium Level 3.9 mEQ/L (3.4-4.9) Chloride Level 98 mEQ/L (98-107) Carbon Dioxide Level 32 mEQ/L (20-30) H Anion Gap 9 (5-15) Blood Urea Nitrogen 9 mg/dL (7-23) Creatinine 0.4 mg/dL (0.7-1.2) L Estimat Glomerular Filtration Rate > 60 mL/min (>60) Glucose Level 121 mg/dL (74-106) H Calcium Level 8.9 mg/dL (8.6-10.2) Current Medications Medications (Trade) Dose Ordered Sig/Ayo Route PRN Reason Start Time Stop Time Status Last Admin Dose Admin Acetaminophen (Tylenol) 650 mg Q4H PRN ORAL fever 07/19/16 22:15 08/18/16 22:14 Al Hydroxide/Mg Hydroxide (Mylanta II) 30 ml Q6H PRN ORAL dyspepsia 07/19/16 22:15 08/18/16 22:14 Benztropine Mesylate (Cogentin) 1 mg DAILY ORAL 07/23/16 09:00 08/22/16 08:59 07/26/16 09:23 Cefazolin Sodium/ Dextrose (Ancef/D5W 50ml) 50 ml @ 100 mls/hr Q8HR IVPB 07/21/16 14:00 07/28/16 13:59 07/27/16 06:06 Dextrose 1,000 ml @ 75 mls/hr [id number] IV 07/20/16 17:30 08/19/16 17:29 07/26/16 20:59 Dextrose STAT PRN IV Hypoglycemia 07/19/16 22:15 08/18/16 22:14 07/20/16 16:25 Heparin Sodium (Porcine) (Heparin 5000 units/ml) 5,000 units EVERY 12 HOURS SUBQ 07/20/16 09:00 08/19/16 08:59 07/26/16 20:59 Insulin Aspart (NovoLOG) BEFORE MEALS AND HS SUBQ 07/27/16 06:30 08/26/16 06:29 Lorazepam (Ativan 2mg/ml 1ml) 1 mg Q1H PRN IV involuntary movement 07/27/16 08:30 08/03/16 08:29 Metoprolol Succinate (Toprol XL) 50 mg DAILY ORAL 07/20/16 09:00 08/19/16 08:59 07/22/16 08:11 Nitroglycerin (Ntg) 0.4 mg Q5M PRN SL Prn Chest Pain 07/19/16 22:15 08/18/16 22:14 Ondansetron HCl (Zofran) 4 mg Q6H PRN IVP Nausea & Vomiting 07/19/16 22:15 08/18/16 22:14 Polyethylene Glycol (Miralax) 17 gm DAILYPRN PRN ORAL Constipation 07/19/16 22:15 08/18/16 22:14 07/22/16 08:11 Promethazine HCl/ Codeine (Phenergan with Codeine) 5 ml Q4H PRN ORAL For Cough 07/21/16 14:30 08/20/16 14:29 Quetiapine Fumarate (SEROquel) 50 mg BID ORAL 07/23/16 18:00 08/22/16 17:59 07/26/16 17:02 KAMLA BULLARD Jul 27, 2016 08:45
--- NOTE | 2016-07-27 09:58 | Geriatric Medicine Prog Note ---
DATE: 07/26/2016 SUBJECTIVE: The patient is more comfortable today. OBJECTIVE: VITAL SIGNS: Blood pressure 125/70_, pulse 64, respiratory rate 20, and temperature 97.3 degrees. RESPIRATORY: Clear. CARDIOVASCULAR: Regular rhythm. LABORATORY DATA: Glucose is 135. ASSESSMENT: Diabetes mellitus, controlled. PLAN: Levemir 5u sc Q12hrs with Accu-Chek QID ac and HS with sliding scale Novolog coverage. Mauricio Anderson M.D. DR: JOANIE JOB#: [id number] CC: NICHOLAS
--- NOTE | 2016-07-27 11:17 | Neurology Progress Note ---
Interim History Interim History ROS Limited/Unobtainable: Yes Complaints: mute Events: this am noted involuntary jerking arm [id number] Objective Physical Exam Last Vital Signs Date Time Temp Pulse Resp B/P Pulse Ox O2 Delivery O2 Flow Rate FiO2 07/27/16 09:00 98.1 95 18 122/77 98 Venturi Mask 15.0 07/27/16 07:10 21 Laboratory Tests Test 07/27/16 05:00 White Blood Count 5.4 K/UL (4.8-10.8) Red Blood Count 4.56 M/UL (4.70-6.10) L Hemoglobin 10.4 G/DL (14.2-18.0) L Hematocrit 33.9 % (42.0-52.0) L Mean Corpuscular Volume 74 FL (80-99) L Mean Corpuscular Hemoglobin 22.8 PG (27.0-31.0) L Mean Corpuscular Hemoglobin Concent 30.7 G/DL (32.0-36.0) L Red Cell Distribution Width 13.7 % (11.6-14.8) Platelet Count 243 K/UL (150-450) Mean Platelet Volume 6.2 FL (6.5-10.1) L Neutrophils (%) (Auto) 69.2 % (45.0-75.0) Lymphocytes (%) (Auto) 20.3 % (20.0-45.0) Monocytes (%) (Auto) 8.3 % (1.0-10.0) Eosinophils (%) (Auto) 0.8 % (0.0-3.0) Basophils (%) (Auto) 1.4 % (0.0-2.0) Sodium Level 139 mEQ/L (135-145) Potassium Level 3.9 mEQ/L (3.4-4.9) Chloride Level 98 mEQ/L (98-107) Carbon Dioxide Level 32 mEQ/L (20-30) H Anion Gap 9 (5-15) Blood Urea Nitrogen 9 mg/dL (7-23) Creatinine 0.4 mg/dL (0.7-1.2) L Estimat Glomerular Filtration Rate > 60 mL/min (>60) Glucose Level 121 mg/dL (74-106) H Calcium Level 8.9 mg/dL (8.6-10.2) General: well developed, no acute distress Head: normocophalic, atraumatic Neck: other - rigid Neurologic Exam Mental Status: other - unresponsive ?postictal Speech: other - mute Language: other Cranial Nerve II: no papilledema Cranial Nerves III, IV, : pupils Cranial Nerve V: normal facial sensations, masseters function normal Cranial Nerve VII: no facial asymmetry Cranial Nerve VIII: no nystagmus Cranial Nerve IX: normal palate elevation, gag response Cranial Nerve XII: tongue midline Motor System: no involuntary movement, other - moving against gravity all limbs /rigidity Sensory: other Coordination: other Deep Tendon Reflexes: 0 ankle (L), 0 ankle (R), 0 bicep (L), 0 bicep (R), 0 brachioradialis (L), 0 brachioradialis (R), 0 knee (L), 0 knee (R), 0 tricep (L) , 0 tricep (R) Reflexes: mute plantar (L), mute plantar (R) Impression/Recommendations Problems: (1) episode of involuntary arm/neck jerking. r/o sz activity (2) r/o leukemoid reaction vs. leukemia (3) Pancytopenia (4) Hypothermia Status: progressing, not improved Recommendations #[id number] CT brai----- no trauma CT c spine no fx ----- no cord compression pt/ot EEG [id number] iv prn d/c SAVANNAH Burgess Jul 27, 2016 11:17
--- NOTE | 2016-07-27 11:29 | Pulmonology Progress Note ---
Assessment/Plan Problems: (1) Uncontrolled seizures (2) Sepsis (3) Hypothermia (4) Leukopenia (5) UTI (urinary tract infection) (6) Acute encephalopathy (7) Mental retardation (8) HTN (hypertension) (9) Diabetes Assessment/Plan d/w dr melara, Neurologist continue antibiotics improving pt/ot wbc is normal now f/u cultures check blood sugar dc planning pt/ot notes reviewed Subjective ROS Limited/Unobtainable: Yes Interval Events: had an episode of seizures this morning, transferred to [facility]. still [facility] Allergies: Coded Allergies: No Known Allergies (Unverified , 07/19/16) Objective Last 24 Hour Vital Signs Date Time Temp Pulse Resp B/P Pulse Ox O2 Delivery O2 Flow Rate FiO2 07/27/16 09:00 98.1 95 18 122/77 98 Venturi Mask 15.0 07/27/16 08:40 99 07/27/16 08:08 98.1 109 20 161/86 99 Simple Mask 07/27/16 07:10 66 16 Room Air 21 07/27/16 04:00 98.2 69 19 117/67 98 Room Air 07/27/16 00:00 97.3 69 19 100/62 99 Room Air 07/26/16 20:00 97.3 64 20 106/60 100 Room Air 07/26/16 19:11 65 16 Room Air 21 07/26/16 16:00 97.2 65 18 109/64 97 Room Air 07/26/16 12:00 97.9 64 18 104/63 100 Room Air 21 Intake and Output 07/26/16 07/27/16 19:00 07:00 Intake Total 837 ml 1135 ml Balance 837 ml 1135 ml Intake Oral 100 ml 360 ml IV Total 737 ml 775 ml # Voids 3 2 HEENT: normocephalic, atraumatic Respiratory/Chest: chest wall non-tender, lungs clear Cardiovascular: normal peripheral pulses, normal rate Abdomen: normal bowel sounds, soft, non tender Extremities: no cyanosis, no clubbing 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 Lymphatic: no neck adenopathy Musculoskeletal: no effusion Laboratory Tests 07/27/16 05:00: White Blood Count 5.4, Red Blood Count 4.56L, Hemoglobin 10.4L, Hematocrit 33.9L , Mean Corpuscular Volume 74L, Mean Corpuscular Hemoglobin 22.8L, Mean Corpuscular Hemoglobin Concent 30.7L, Red Cell Distribution Width 13.7, Platelet Count 243, Mean Platelet Volume 6.2L, Neutrophils (%) (Auto) 69.2, Lymphocytes (%) (Auto) 20.3, Monocytes (%) (Auto) 8.3, Eosinophils (%) (Auto) 0.8, Basophils (%) (Auto) 1.4, Sodium Level 139, Potassium Level 3.9, Chloride Level 98, Carbon Dioxide Level 32H, Anion Gap 9, Blood Urea Nitrogen 9, Creatinine 0.4L, Estimat Glomerular Filtration Rate > 60, Glucose Level 121H, Calcium Level 8.9 Current Medications Medications (Trade) Dose Ordered Sig/Ayo Route PRN Reason Start Time Stop Time Status Last Admin Dose Admin Acetaminophen (Tylenol) 650 mg Q4H PRN ORAL fever>100.5 07/27/16 11:30 08/26/16 11:29 Al Hydroxide/Mg Hydroxide (Mylanta II) 30 ml Q6H PRN ORAL dyspepsia 07/27/16 11:30 08/26/16 11:29 Benztropine Mesylate (Cogentin) 1 mg DAILY ORAL 07/27/16 11:30 08/26/16 11:29 Cefazolin Sodium 1 gm/Dextrose 50 ml @ 100 mls/hr Q8HR IVPB 07/27/16 14:00 08/03/16 13:59 UNV Dextrose (D5W 1000ml) 1,000 ml @ 75 mls/hr [id number] IV 07/27/16 12:00 08/26/16 11:59 Dextrose (Dextrose 50%) STAT PRN IV Hypoglycemia 07/27/16 11:30 08/26/16 11:29 Heparin Sodium (Porcine) (Heparin 5000 units/ml) 5,000 units EVERY 12 HOURS SUBQ 07/27/16 11:30 08/26/16 11:29 Insulin Aspart (NovoLOG) BEFORE MEALS AND HS SUBQ 07/27/16 11:30 08/26/16 11:29 Lorazepam (Ativan 2mg/ml 1ml) 1 mg Q1H PRN IV involuntary movement 07/27/16 11:30 08/03/16 11:29 Metoprolol Succinate (Toprol XL) 50 mg DAILY ORAL 07/27/16 11:30 08/26/16 11:29 Nitroglycerin (Ntg) 0.4 mg Q5M PRN SL Prn Chest Pain 07/27/16 11:30 08/26/16 11:29 Ondansetron HCl (Zofran) 4 mg Q6H PRN IVP Nausea & Vomiting 07/27/16 11:30 08/26/16 11:29 Polyethylene Glycol (Miralax) 17 gm DAILYPRN PRN ORAL Constipation 07/27/16 11:30 08/26/16 11:29 Promethazine HCl/ Codeine (Phenergan with Codeine) 5 ml Q4H PRN ORAL For Cough 07/27/16 11:30 08/26/16 11:29 Quetiapine Fumarate (SEROquel) 50 mg BID ORAL 07/27/16 11:30 08/26/16 11:29 REBECCA SCHNEIDER Jul 27, 2016 11:29
[2016-07-27] MEDS: NovoLOG Insulin Flexpen SUBQ SCH ×3 (11:30→21:00)
[2016-07-27] MEDS ORDERED: Mylanta II UD 30ml ORAL PRN (11:30)
[2016-07-27] MEDS ORDERED: Nitroglycerin Subl 0.4mg tab (Bottle Of 25) SL PRN (11:30)
[2016-07-27] MEDS ORDERED: Miralax 17gm pkt ORAL PRN (11:30)
[2016-07-27] MEDS ORDERED: Promethazine/Codeine 5ml UD ORAL PRN (11:30)
[2016-07-27] MEDS: Heparin 5000 units/ml inj SUBQ SCH ×2 (12:08→21:29)
[2016-07-27] MEDS: Benztropine 1mg tab ORAL SCH (14:01)
[2016-07-27] MEDS ORDERED: Tubing IV Secondary IV ONE (17:54)
[2016-07-28] VITALS: BP 106/56
[2016-07-28 04:00] VITALS: BP 126/54
[2016-07-28] MEDS: NovoLOG Insulin Flexpen SUBQ SCH ×4 (06:06→20:42)
[2016-07-28 06:12] LABS: BASOPHILS % (AUTO) 0.8 % (0.0-2.0); EOSINOPHILS % (AUTO) 0.2 % (0.0-3.0); LYMPHOCYTES % (AUTO) 10.3 % (20.0-45.0); MEAN CORPUSCULAR HEMOGLOBIN 23.1 PG (27.0-31.0); MEAN CORPUSCULAR HGB CONC 30.6 G/DL (32.0-36.0); MEAN CORPUSCULAR VOLUME 75 FL (80-99); MEAN PLATELET VOLUME 5.8 FL (6.5-10.1); MONOCYTES % (AUTO) 6.2 % (1.0-10.0); NEUTROPHILS % (AUTO) 82.6 % (45.0-75.0); PLATELET COUNT 250 K/UL (150-450); RED BLOOD COUNT 3.96 M/UL (4.70-6.10); RED CELL DISTRIBUTION WIDTH 14.1 % (11.6-14.8); WHITE BLOOD COUNT 10.9 K/UL (4.8-10.8)
[2016-07-28 06:20] LABS: ALANINE AMINOTRANSFERASE 32 U/L (3-41); ALBUMIN/GLOBULIN RATIO 0.8 (1.0-2.7); ANION GAP 8 (5-15); ASPARTATE AMINO TRANSFERASE 23 U/L (5-40); CALCIUM 8.9 mg/dL (8.6-10.2); CARBON DIOXIDE 34 mEQ/L (20-30); CHLORIDE 95 mEQ/L (98-107); CREATININE 0.6 mg/dL (0.7-1.2); GLOMERULAR FILTRATION RATE > 60 mL/min (>60); HEMOLYSIS 8; MAGNESIUM 1.9 mg/dL (1.7-2.5); PHOSPHORUS 2.9 mg/dL (2.5-4.8); POTASSIUM 4.2 mEQ/L (3.4-4.9); SODIUM 137 mEQ/L (135-145); TOTAL PROTEIN 5.4 g/dL (6.6-8.7)
[2016-07-28 08:00] VITALS: BP 98/54
[2016-07-28] MEDS: Benztropine 1mg tab ORAL SCH (08:43)
[2016-07-28] MEDS: Heparin 5000 units/ml inj SUBQ SCH ×2 (08:50→20:41)
--- NOTE | 2016-07-28 09:08 | Geriatric Medicine Prog Note ---
Y" SUBJECTIVE: The patient is comfortable__. OBJECTIVE: VITAL SIGNS: stable. RESPIRATORY: Clear. CARDIOVASCULAR: regular _BORATORY DATA: Glucose 125 ASSESSMENT: Diabetes Mellitus controlled__. PLANS:Levemir Insulin 5u sc Q12hrs with sliding scale mNovolog QID ac and HSI Mauricio Anderson M.D. DR: JOANIE JOB#: [id number] CC: NICHOLAS
[2016-07-28] MEDS ORDERED: CEPHALEXIN500 MG ORAL (09:46)
--- NOTE | 2016-07-28 09:51 | Pulmonology Progress Note ---
Assessment/Plan Problems: (1) Uncontrolled seizures Assessment & Plan: better, just one episode, Neuro following (2) Sepsis (3) Hypothermia (4) Leukopenia (5) UTI (urinary tract infection) (6) Acute encephalopathy (7) Mental retardation (8) HTN (hypertension) (9) Diabetes Assessment/Plan d/w dr melara, Neurologist continue antibiotics, change to Keflex upon discharge as recommended pt/ot wbc is normal now BP is slightly low, will hold beta blockers. f/u cultures check blood sugar dc planning pt/ot notes reviewed Subjective ROS Limited/Unobtainable: No Interval Events: comfortable, ate all of his breakfast Allergies: Coded Allergies: No Known Allergies (Unverified , 07/19/16) Objective Last 24 Hour Vital Signs Date Time Temp Pulse Resp B/P Pulse Ox O2 Delivery O2 Flow Rate FiO2 07/28/16 08:43 57 98/54 07/28/16 08:00 97.7 59 18 98/54 99 Room Air 07/28/16 04:00 97.4 67 18 126/54 94 Room Air 07/28/16 00:00 97.6 64 14 106/56 97 Room Air 07/27/16 20:00 98.2 78 16 110/63 99 07/27/16 19:12 71 16 Room Air 21 07/27/16 16:00 97.0 84 19 116/67 94 Room Air 07/27/16 16:00 78 07/27/16 12:04 95 122/77 07/27/16 12:00 98.2 92 18 133/73 94 Room Air Intake and Output 07/27/16 07/28/16 19:00 07:00 Intake Total 670 ml 815 ml Output Total 450 ml 550 ml Balance 220 ml 265 ml Intake Oral 320 ml 240 ml IV Total 350 ml 575 ml Output Urine Total 450 ml 550 ml General Appearance: WD/WN HEENT: normocephalic, anicteric Respiratory/Chest: chest wall non-tender, lungs clear Cardiovascular: normal peripheral pulses, normal rate Abdomen: normal bowel sounds, soft, non tender, non distended Extremities: no cyanosis Skin: no rash Laboratory Tests 07/28/16 04:20: White Blood Count 10.9#H, Red Blood Count 3.96L, Hemoglobin 9.1L, Hematocrit 29.9L, Mean Corpuscular Volume 75L, Mean Corpuscular Hemoglobin 23.1L, Mean Corpuscular Hemoglobin Concent 30.6L, Red Cell Distribution Width 14.1, Platelet Count 250, Mean Platelet Volume 5.8L, Neutrophils (%) (Auto) 82.6H, Lymphocytes (%) (Auto) 10.3L, Monocytes (%) (Auto) 6.2, Eosinophils (%) (Auto) 0.2, Basophils (%) (Auto) 0.8, Sodium Level 137, Potassium Level 4.2, Chloride Level 95L, Carbon Dioxide Level 34H, Anion Gap 8, Blood Urea Nitrogen 11, Creatinine 0.6L, Estimat Glomerular Filtration Rate > 60, Glucose Level 81, Calcium Level 8.9, Phosphorus Level 2.9, Magnesium Level 1.9, Total Bilirubin < 0.2, Aspartate Amino Transf (AST/SGOT) 23, Alanine Aminotransferase (ALT/SGPT) 32, Alkaline Phosphatase 74, Total Protein 5.4L, Albumin 2.5L, Globulin 2.9, Albumin/Globulin Ratio 0.8L Current Medications Medications (Trade) Dose Ordered Sig/Ayo Route PRN Reason Start Time Stop Time Status Last Admin Dose Admin Acetaminophen (Tylenol) 650 mg Q4H PRN ORAL fever>100.5 07/27/16 11:30 08/26/16 11:29 Al Hydroxide/Mg Hydroxide (Mylanta II) 30 ml Q6H PRN ORAL dyspepsia 07/27/16 11:30 08/26/16 11:29 Benztropine Mesylate (Cogentin) 1 mg DAILY ORAL 07/27/16 11:30 08/26/16 11:29 07/28/16 08:43 Cefazolin Sodium/ Dextrose (Ancef/D5W 50ml) 50 ml @ 100 mls/hr Q8HR IVPB 07/27/16 14:00 08/01/16 13:59 07/28/16 06:17 Dextrose (D5W 1000ml) 1,000 ml @ 50 mls/hr Q20H IV 07/27/16 12:00 08/26/16 11:59 07/28/16 06:19 Dextrose (Dextrose 50%) STAT PRN IV Hypoglycemia 07/27/16 11:30 08/26/16 11:29 Heparin Sodium (Porcine) (Heparin 5000 units/ml) 5,000 units EVERY 12 HOURS SUBQ 07/27/16 11:30 08/26/16 11:29 07/28/16 08:50 Insulin Aspart (NovoLOG) BEFORE MEALS AND HS SUBQ 07/27/16 11:30 08/26/16 11:29 07/27/16 17:06 Lorazepam (Ativan 2mg/ml 1ml) 1 mg Q1H PRN IV involuntary movement 07/27/16 11:30 08/03/16 11:29 Metoprolol Succinate (Toprol XL) 50 mg DAILY ORAL 07/27/16 11:30 08/26/16 11:29 07/27/16 12:04 Nitroglycerin (Ntg) 0.4 mg Q5M PRN SL Prn Chest Pain 07/27/16 11:30 08/26/16 11:29 Ondansetron HCl (Zofran) 4 mg Q6H PRN IVP Nausea & Vomiting 07/27/16 11:30 08/26/16 11:29 Polyethylene Glycol (Miralax) 17 gm DAILYPRN PRN ORAL Constipation 07/27/16 11:30 08/26/16 11:29 Promethazine HCl/ Codeine 5 ml 5 ml Q4H PRN ORAL For Cough 07/27/16 11:30 08/26/16 11:29 07/27/16 21:26 REBECCA SCHNEIDER Jul 28, 2016 09:51
[2016-07-28 12:00] VITALS: BP 91/54
--- NOTE | 2016-07-28 12:46 | Infectious Diseases Prog Note ---
Assessment/Plan Assessment/Plan A: The patient is a 50-year-old male with Sepsis, SP SP hypothermia UTI EColi Leukopenia / pancytopenia improved ? 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 d # 2 ) Monitor CBC, temperatures, re-culture if acute change Monitor BMP. Recommend hematology/oncology evaluation Subjective Constitutional: Denies: anorexia, chills, drenching sweats, fatigue, fever, no symptoms, other Allergies: Coded Allergies: No Known Allergies (Unverified , 07/19/16) Subjective SP fall Objective Vital Signs Last 24 Hour Vital Signs Date Time Temp Pulse Resp B/P Pulse Ox O2 Delivery O2 Flow Rate FiO2 07/28/16 12:00 97.7 66 18 91/54 95 Room Air 07/28/16 08:43 57 98/54 07/28/16 08:21 62 18 Room Air 07/28/16 08:00 69 07/28/16 08:00 97.7 59 18 98/54 99 Room Air 07/28/16 04:00 97.4 67 18 126/54 94 Room Air 07/28/16 00:00 97.6 64 14 106/56 97 Room Air 07/27/16 20:00 98.2 78 16 110/63 99 07/27/16 19:12 71 16 Room Air 21 07/27/16 16:00 97.0 84 19 116/67 94 Room Air 07/27/16 16:00 78 Height (Feet): 6 Height (Inches): 0.00 Weight (Pounds): 175 HEENT: atraumatic Respiratory/Chest: normal breath sounds Cardiovascular: normal peripheral pulses Abdomen: soft, non tender Laboratory Tests Test 07/28/16 04:20 White Blood Count 10.9 K/UL (4.8-10.8) #H Red Blood Count 3.96 M/UL (4.70-6.10) L Hemoglobin 9.1 G/DL (14.2-18.0) L Hematocrit 29.9 % (42.0-52.0) L Mean Corpuscular Volume 75 FL (80-99) L Mean Corpuscular Hemoglobin 23.1 PG (27.0-31.0) L Mean Corpuscular Hemoglobin Concent 30.6 G/DL (32.0-36.0) L Red Cell Distribution Width 14.1 % (11.6-14.8) Platelet Count 250 K/UL (150-450) Mean Platelet Volume 5.8 FL (6.5-10.1) L Neutrophils (%) (Auto) 82.6 % (45.0-75.0) H Lymphocytes (%) (Auto) 10.3 % (20.0-45.0) L Monocytes (%) (Auto) 6.2 % (1.0-10.0) Eosinophils (%) (Auto) 0.2 % (0.0-3.0) Basophils (%) (Auto) 0.8 % (0.0-2.0) Sodium Level 137 mEQ/L (135-145) Potassium Level 4.2 mEQ/L (3.4-4.9) Chloride Level 95 mEQ/L (98-107) L Carbon Dioxide Level 34 mEQ/L (20-30) H Anion Gap 8 (5-15) Blood Urea Nitrogen 11 mg/dL (7-23) Creatinine 0.6 mg/dL (0.7-1.2) L Estimat Glomerular Filtration Rate > 60 mL/min (>60) Glucose Level 81 mg/dL (74-106) Calcium Level 8.9 mg/dL (8.6-10.2) Phosphorus Level 2.9 mg/dL (2.5-4.8) Magnesium Level 1.9 mg/dL (1.7-2.5) Total Bilirubin < 0.2 mg/dL (0.0-1.2) Aspartate Amino Transf (AST/SGOT) 23 U/L (5-40) Alanine Aminotransferase (ALT/SGPT) 32 U/L (3-41) Alkaline Phosphatase 74 U/L (40-129) Total Protein 5.4 g/dL (6.6-8.7) L Albumin 2.5 g/dL (3.5-5.2) L Globulin 2.9 g/dL Albumin/Globulin Ratio 0.8 (1.0-2.7) L Current Medications Medications (Trade) Dose Ordered Sig/Ayo Route PRN Reason Start Time Stop Time Status Last Admin Dose Admin Acetaminophen (Tylenol) 650 mg Q4H PRN ORAL fever>100.5 07/27/16 11:30 08/26/16 11:29 Al Hydroxide/Mg Hydroxide (Mylanta II) 30 ml Q6H PRN ORAL dyspepsia 07/27/16 11:30 08/26/16 11:29 Benztropine Mesylate (Cogentin) 1 mg DAILY ORAL 07/27/16 11:30 08/26/16 11:29 07/28/16 08:43 Cefazolin Sodium/ Dextrose (Ancef/D5W 50ml) 50 ml @ 100 mls/hr Q8HR IVPB 07/27/16 14:00 08/01/16 13:59 07/28/16 06:17 Dextrose (D5W 1000ml) 1,000 ml @ 50 mls/hr Q20H IV 07/27/16 12:00 08/26/16 11:59 07/28/16 06:19 Dextrose (Dextrose 50%) STAT PRN IV Hypoglycemia 07/27/16 11:30 08/26/16 11:29 Heparin Sodium (Porcine) (Heparin 5000 units/ml) 5,000 units EVERY 12 HOURS SUBQ 07/27/16 11:30 08/26/16 11:29 07/28/16 08:50 Insulin Aspart (NovoLOG) BEFORE MEALS AND HS SUBQ 07/27/16 11:30 08/26/16 11:29 07/28/16 12:17 Lorazepam (Ativan 2mg/ml 1ml) 1 mg Q1H PRN IV involuntary movement 07/27/16 11:30 08/03/16 11:29 Nitroglycerin (Ntg) 0.4 mg Q5M PRN SL Prn Chest Pain 07/27/16 11:30 08/26/16 11:29 Ondansetron HCl (Zofran) 4 mg Q6H PRN IVP Nausea & Vomiting 07/27/16 11:30 08/26/16 11:29 Polyethylene Glycol (Miralax) 17 gm DAILYPRN PRN ORAL Constipation 07/27/16 11:30 08/26/16 11:29 Promethazine HCl/ Codeine 5 ml 5 ml Q4H PRN ORAL For Cough 07/27/16 11:30 08/26/16 11:29 07/27/16 21:26 DENZEL WEAVER M.D. Jul 28, 2016 12:46
--- NOTE | 2016-07-28 13:26 | Diagnostic Imaging Report ---
Indication: Dyspnea Comparison: 07/14/16 A single view chest radiograph was obtained. Findings: Developing density at the right lung base noted. Heart size remains within normal. Bones are unremarkable. Impression: Suspected new developing pneumonia right lung base
[2016-07-28 16:00] VITALS: BP 90/53
[2016-07-28] MEDS ORDERED: 1/2 NS 1000ml IV ONE (17:27)
[2016-07-28 20:00] VITALS: BP 98/51
--- NOTE | 2016-07-30 10:31 | Discharge Summary ---
Discharge Summary Hospital Course Date of Admission Jul 19, 2016 at 18:30 Date of Discharge Jul 28, 2016 at 21:40 Admitting Diagnosis AMS/ Weakness HPI Kaitlin Ponce is a 50 year old male who was admitted on Jul 19, 2016 at 18:30 for Altered Mental Status/Weakness Hospital Course [id number] Discharge Discharge Disposition Patient was discharged to SNF/Subacute Facility(03) Discharge Diagnoses: Soledad Steel NP Jul 30, 2016 10:31
--- NOTE | 2016-07-31 01:27 | Discharge Summary 2 SIG ---
DATE OF ADMISSION: 07/19/2016 DATE OF DISCHARGE: 07/28/2016 CONSULTANTS: 1. You Crawford M.D. 2. Сергей Jane M.D. 3. Aníbal Olivo M.D. 4. Levy Powell M.D. BRIEF HOSPITAL COURSE: The patient is a 50-year-old male, who was brought in for increased weakness for few weeks and low blood sugar. At senior living, the patient almost fell. He has history of mitral regurgitation. Workup revealed hypotension with elevated lactic acid. Urinalysis with evidence of infection. Chest x-ray showed hazy appearance in the left base suggestive of atelectasis versus infiltrate. Septic workup was initiated at ED, and was started on empiric antibiotic. He was given IV hydration and respiratory treatment. Dr. Crawford was consulted. The patient was found to be neutropenic possibly secondary to psychiatric medications. Urine showed growth of E. coli. He was given Ancef, and at the time of discharge, was changed to p.o. Keflex to complete antibiotic course. Dr. Jane was consulted for evaluation of blood glucose. Dr. Olivo was consulted for neurological evaluation of extrapyramidal abnormalities. The patient had left-sided torticollis. CT of the brain showed no trauma. CT of the cervical spine showed no fracture and no cord compression. Dr. Powell was consulted for psychiatric evaluation as the patient was confused and disoriented. Antipsychotics were adjusted. Zyprexa was discontinued. Seroquel was resumed. The patient was given physical therapy and occupational therapy and was eventually discharged to SNF to continue antibiotic treatment. FINAL DIAGNOSES: 1. Sepsis. 2. Acute toxic metabolic encephalopathy. 3. Urinary tract infection with Escherichia coli. 4. Leukopenia/pancytopenia probably secondary to psychiatric medications. 5. Hepatitis. 6. Mental retardation with mutism. 7. Hypertension. 8. Diabetes mellitus. 9. Episode of involuntary arm jerking possible seizure activity. 10. Episode of hypoglycemia. 11. Mild hypercalcemia . 12. Elevated liver transaminases. Iman Cunha M.D. I have been assigned to dictate discharge summary on this account and I was not involved in the patient's management. Soledad Steel N.P. DR: Rosa JOB#: [id number] CC: NICHOLAS
== END 2016-07-28 21:40 | DRG 871 ==
LOC: ENRESERVTM → ENRESERVDT → EMR 17:15 → 4E 18:30 → EDBEDREQ 19:20 → 4E 07-20 08:00 → 2W 07-27 08:46
DX: A41.9 Sepsis, unspecified organism (principal); G92 Toxic encephalopathy; D61.811 Other drug-induced pancytopenia; T68.XXXA Hypothermia, initial encounter; I95.9 Hypotension, unspecified; G82.20 Paraplegia, unspecified; D70.2 Other drug-induced agranulocytosis; E11.649 Type 2 diabetes mellitus with hypoglycemia without coma; N39.0 Urinary tract infection, site not specified; R47.01 Aphasia; E83.52 Hypercalcemia; G25.3 Myoclonus; K75.9 Inflammatory liver disease, unspecified; I10 Essential (primary) hypertension; B96.20 Unspecified Escherichia coli [E. coli] as the cause of diseases classified elsewhere; F79 Unspecified intellectual disabilities; T43.95XA Adverse effect of unspecified psychotropic drug, initial encounter; Y92.9 Unspecified place or not applicable; M43.6 Torticollis; Q76.49 Other congenital malformations of spine, not associated with scoliosis
CPT/HCPCS: 36415; 70110; 70450; 71010; 72052; 72125; 76700; 80048; 80053; 80061; 80069; 81003; 82550; 82553; 82607; 82962; 83605; 83615; 83735; 84100; 84484; 85007; 85025; 85610; 85651; 85730; 86140; 86703; 86705; 86709; 86803; 87040; 87070; 87081; 87086; 87181; 87205; 87340; 93005; 94664; J1815

== ENCOUNTER 2016-08-04 22:24 | Emergency (ER) | payer OTHER, MEDICAID ==
[~2016-08-04] VITALS: Ht 182.9 cm; Wt 68.0 kg
[~2016-08-04 22:24] MED LIST: ACTOS30 MG ORAL; BENZTROPINE MESY1 MG PO; CEPHALEXIN500 MG ORAL; DOCUSATE SODIU100 MG ORAL; FERROUS SULFAT325 MG ORAL; LORATADINE10 M1 PO; METFORMIN HCL1000 M1 ORAL; QUETIAPINE FUMA50 MG ORAL; SIMVASTATIN20 MG ORAL; TOPROL XL50 MG ORAL; VITAMIN D1000 UNI1 ORAL; ZOLPIDEM TARTRAT5 MG ORAL; ZYPREXA10 MG ORAL
[2016-08-04 23:17] VITALS: BP 128/81
[2016-08-05] VITALS: BP 115/62
[2016-08-05 00:12] LABS: BASOPHILS % (AUTO) 1.9 % (0.0-2.0); EOSINOPHILS % (AUTO) 0.9 % (0.0-3.0); LYMPHOCYTES % (AUTO) 13.1 % (20.0-45.0); MEAN CORPUSCULAR HEMOGLOBIN 23.1 PG (27.0-31.0); MEAN CORPUSCULAR VOLUME 77 FL (80-99); MEAN PLATELET VOLUME 5.8 FL (6.5-10.1); MONOCYTES % (AUTO) 8.1 % (1.0-10.0); NEUTROPHILS % (AUTO) 75.9 % (45.0-75.0); PLATELET COUNT 495 K/UL (150-450); RED BLOOD COUNT 4.35 M/UL (4.70-6.10); RED CELL DISTRIBUTION WIDTH 16.2 % (11.6-14.8); WHITE BLOOD COUNT 6.8 K/UL (4.8-10.8)
[2016-08-05 01:00] VITALS: BP 112/63
[2016-08-05] MEDS ORDERED: LORazepam Inj 2mg/ml 1ml IV ONE (01:30)
[2016-08-05] MEDS ORDERED: DiphenhydrAMINE 50mg/ml Inj IVP ONE (01:30)
[2016-08-05 02:00] VITALS: BP 104/66
[2016-08-05 02:00] LABS: ANION GAP 17 (5-15); CALCIUM 9.1 mg/dL (8.6-10.2); CARBON DIOXIDE 26 mEQ/L (20-30); CHLORIDE 100 mEQ/L (98-107); CREATININE 0.4 mg/dL (0.7-1.2); GLOMERULAR FILTRATION RATE > 60 mL/min (>60); HEMOLYSIS 14; POTASSIUM 4.7 mEQ/L (3.4-4.9); SODIUM 143 mEQ/L (135-145)
[2016-08-05 02:07] VITALS: BP 112/63
--- NOTE | 2016-08-05 06:06 | Emergency Room Report ---
History of Present Illness General Chief Complaint: Seizure Source: EMS Present Illness HPI Patient presents with complaints of seizure Patient has a history of encephalopathy and seizure disorder was witnessed by nursing staff have a seizure activity and sent to the emergency room There are no obvious specifics noted of the seizure Patient himself is nonverbal History of present illness is significantly limited Patient has eyes open and he does track and is responsive in that sense There was no reports of fevers recently no reports of vomiting or diarrhea Allergies: Coded Allergies: No Known Allergies (Unverified , 07/19/16) Patient History Limited by: medical condition Past Medical History: see triage record Pertinent Family History: unable to obtain Reviewed Nursing Documentation: PMH: Agreed, PSxH: Agreed Nursing Documentation-PMH Hx Hypertension: Yes Hx Diabetes: Yes History Of Psychiatric Problem: Yes - psychosis Review of Systems All Other Systems: limited - Other than the ones mentioned in the history of present illness all others are reviewed however they do stay limited due to the patient's mental status Physical Exam Vital Signs Date Time Temp Pulse Resp B/P Pulse Ox O2 Delivery O2 Flow Rate FiO2 08/04/16 22:31 97.3 72 16 128/81 94 Room Air Sp02 EP Interpretation: reviewed, normal General Appearance: no apparent distress Head: normocephalic, atraumatic Eyes: bilateral eye EOMI, bilateral eye PERRL ENT: hearing grossly normal, normal pharynx, TMs + canals normal, uvula midline Neck: full range of motion, supple, no meningismus, no bony tend Respiratory: lungs clear, normal breath sounds, no rhonchi, no respiratory distress, no retraction, no accessory muscle use Cardiovascular #1: normal peripheral pulses, regular rate, rhythm, no edema, no gallop, no JVD, no murmur Gastrointestinal: normal bowel sounds, non tender, soft, no mass, no organomegaly, non-distended, no guarding, no hernia, no pulsatile mass, no rebound Genitourinary: no CVA tenderness Musculoskeletal: other - Patient does not follow commands however moves both upper extremities without focal deficit Neurologic: responsive, sensory intact, other - To physical and verbal stimuli patient has not have any focality to his exam, Psychiatric: mood/affect normal Skin: warm/dry, palpation normal Lymphatic: normal inspection, no adenopathy Medical Decision Making Diagnostic Impression: Primary Impression: Seizure disorder ER Course Patient appears to have a medication of Toprol that he takes for seizures That is the only medication I have on file for the patient No other measurable medications are visualized Patient had a CT head along with baseline blood work obtained They do appear appropriate Patient remained seizure-free At this time stable for close outpatient followup Labs Test 08/04/16 23:30 White Blood Count 6.8 K/UL (4.8-10.8) Red Blood Count 4.35 M/UL (4.70-6.10) Hemoglobin 10.1 G/DL (14.2-18.0) Hematocrit 33.5 % (42.0-52.0) Mean Corpuscular Volume 77 FL (80-99) Mean Corpuscular Hemoglobin 23.1 PG (27.0-31.0) Mean Corpuscular Hemoglobin Concent 30.0 G/DL (32.0-36.0) Red Cell Distribution Width 16.2 % (11.6-14.8) Platelet Count 495 K/UL (150-450) Mean Platelet Volume 5.8 FL (6.5-10.1) Neutrophils (%) (Auto) 75.9 % (45.0-75.0) Lymphocytes (%) (Auto) 13.1 % (20.0-45.0) Monocytes (%) (Auto) 8.1 % (1.0-10.0) Eosinophils (%) (Auto) 0.9 % (0.0-3.0) Basophils (%) (Auto) 1.9 % (0.0-2.0) Sodium Level 143 mEQ/L (135-145) Potassium Level 4.7 mEQ/L (3.4-4.9) Chloride Level 100 mEQ/L (98-107) Carbon Dioxide Level 26 mEQ/L (20-30) Anion Gap 17 (5-15) Blood Urea Nitrogen 17 mg/dL (7-23) Creatinine 0.4 mg/dL (0.7-1.2) Estimat Glomerular Filtration Rate > 60 mL/min (>60) Glucose Level 93 mg/dL (74-106) Calcium Level 9.1 mg/dL (8.6-10.2) Rhythm Strip Diag. Results EP Interpretation: yes Rate: 77 Rhythm: NSR, no PVC's, no ectopy CT/MRI/US Diagnostic Results CT/MRI/US Diagnostic Results : Impression CT head no acute disease Last Vital Signs Date Time Temp Pulse Resp B/P Pulse Ox O2 Delivery O2 Flow Rate FiO2 08/05/16 02:07 97.3 61 19 112/63 98 Room Air Status: improved Disposition: ER [facility] Condition: Improved Referrals: NON PHYSICIAN (PCP) Patient Instructions: Seizure, Adult Additional Instructions: Patient is provided with the discharge instructions notified to follow up with primary doctor in the next 2-3 days otherwise return to the er with any worsening symptoms. GIANNI ANDERSON D.O. Aug 05, 2016 06:06
--- NOTE | 2016-08-05 10:31 | Diagnostic Imaging Report ---
Indication: Seizure Technique: Contiguous 5 mm thick transaxial imaging of the head obtained in a Siemens Sensation [address] scanner. Soft tissue and bone windows generated. Total Dose length Product (DLP): [address] Dose Index Volume (CTDIvol): 70.38 mGy Comparison: none Findings: The size and configuration of the cortical sulci, basal cisterns, and ventricles are within normal limits for age. There is no mass effect, midline shift, or edema identified. There is no evidence of acute hemorrhage or abnormal intra-axial or extra-axial fluid collections. The bones and soft tissues are unremarkable. Impression: No mass effect, edema or acute bleed. The CT scanner at [facility] is accredited by the [employer] and the scans are performed using protocols designed to limit radiation exposure to as low as reasonably achievable to attain images of sufficient resolution adequate for diagnostic evaluation.
== END 2016-08-05 02:18 ==
LOC: EDBD 22:24 → EMR 23:17
DX: G40.909 Epilepsy, unspecified, not intractable, without status epilepticus (principal); I10 Essential (primary) hypertension; E11.9 Type 2 diabetes mellitus without complications
CPT/HCPCS: 36415; 70450; 80048; 85025; 96374; 96375; 99284; J1200